=== PATIENT | female | born 1960 | race American Indian/Alaskan Native ===

== ENCOUNTER 2017-06-04 13:17 | Emergency (ER) | payer MEDICARE, OTHER ==
[2017-06-04 13:17] VITALS: BMI 37.2
[2017-06-04 13:32] VITALS: BP 105/69; PULSE 72; RESP 20; TEMP 98.7; O2SAT 96
[2017-06-04] MEDS ORDERED: guaiFENesin 200 mg/10 ml Syrup UD PO STA (16:21)
--- NOTE | 2017-06-04 16:31 | ED PDOC ---
Arrival/HPI - General Historian: Patient <Becky Russell A - Last Filed: 06/04/17 20:19> <StevenBonilla brito - Last Filed: 06/06/17 18:52> - General Chief Complaint: ENT Problem Time Seen by Provider: 06/04/17 13:33 - History of Present Illness Narrative History of Present Illness (Text): 06/04/17 16:23 57yo female with PMHx of hypertension, hypercholestrol, CAD who present with 2weeks history of yellow productive cough. States it started with sore throat. the sore throat resolved and then the cough started. She did not take any medication. Denies fever, nausea, vomiting, chest pain, SOB, sick contact. (Becky Russell A) Past Medical History - Provider Review Nursing Documentation Reviewed: Yes - Infectious Disease Hx of Infectious Diseases: None - Tetanus Immunization Tetanus Immunization: Unknown - Reproductive Menopause: Yes - Cardiac Hx Congestive Heart Failure: Yes Hx [place]: Yes (X5, HEART FAILURE) Hx Hypertension: Yes Hx Internal Defibrillator: Yes (removed after transplant) Other/Comment: HEART TRANSPLANT cardiac arrest - Pulmonary Hx Bronchitis: Yes - Neurological Hx Paralysis: No - HEENT Hx HEENT Disorder: No - Renal Hx Renal Disorder: No - Endocrine/Metabolic Hx Diabetes Mellitus Type 2: Yes - Hematological/Oncological Hx Blood Transfusions: Yes (LAST TRANSFUSION - 2003) Hx Blood Transfusion Reaction: No - Integumentary Hx Dermatological Disorder: No - Musculoskeletal/Rheumatological Hx Arthritis: Yes (R HIP) - Gastrointestinal Hx Gall Bladder Disease: Yes Hx Gastrointestinal Ulcer: Yes - Genitourinary/Gynecological Hx Genitourinary Disorders: Yes (cystitis) - Psychiatric Hx Depression: Yes Hx Emotional Abuse: No Hx Physical Abuse: No Hx Substance Use: No - Surgical History Hx Cardiac Catheterization: Yes Hx Cholecystectomy: Yes Hx Orthopedic Surgery: Yes (RIGHT KNEE, spinal fussion) Hx Tonsillectomy: Yes Other/Comment: heart transplant right knee replacement - Anesthesia Hx Anesthesia Reactions: No - Suicidal Assessment Feels Threatened In Home Enviroment: No <Becky Russell A - Last Filed: 06/04/17 20:19> Family/Social History - Physician Review Nursing Documentation Reviewed: Yes Family/Social History: Unknown Family HX Smoking Status: Former Smoker Hx Alcohol Use: No Hx Substance Use: No Hx Substance Use Treatment: No <Diru,Happiness A - Last Filed: 06/04/17 20:19> Allergies/Home Meds <Diru,Happiness A - Last Filed: 06/04/17 20:19> <StevenDiogenesori - Last Filed: 06/06/17 18:52> Allergies/Adverse Reactions: Allergies acetaminophen Allergy (Verified 10/01/15 18:13) RASH amoxicillin Allergy (Verified 10/01/15 18:13) DIARRHEA amoxicillin trihydrate [From Augmentin] Allergy (Verified 10/01/15 18:13) DIARRHEA apple Allergy (Verified 10/01/15 18:13) RASH cat dander Allergy (Verified 10/01/15 18:13) CONGESTION clavulanic acid Allergy (Verified 10/01/15 18:13) DIARRHEA codeine Allergy (Verified 10/01/15 18:13) RASH dog dander Allergy (Verified 10/01/15 18:13) CONGESTION doxycycline Allergy (Verified 10/01/15 18:13) DIARRHEA grass pollen Allergy (Verified 10/01/15 18:13) CONGESTION hydrocodone Allergy (Verified 10/01/15 18:13) RASH hydrocodone bitartrate [From Vicodin] Allergy (Verified 10/01/15 18:13) RASH ibuprofen Allergy (Verified 10/01/15 18:13) ANAPHYLAXIS iodine Allergy (Verified 10/01/15 18:13) RASH Latex, Natural Rubber Allergy (Verified 10/01/15 18:13) RASH levofloxacin Allergy (Verified 10/01/15 18:13) RASH megestrol Allergy (Verified 10/01/15 18:13) ANAPHYLAXIS metronidazole Allergy (Verified 10/01/15 18:13) DIARRHEA mold Allergy (Verified 10/01/15 18:13) CONGESTION naproxen Allergy (Verified 10/01/15 18:13) ANAPHYLAXIS nitrofurantoin [From Macrobid] Allergy (Verified 10/01/15 18:13) RASH nitrofurantoin macrocrystalline [From Macrobid] Allergy (Verified 10/01/15 18:13 ) RASH oxycodone Allergy (Verified 10/01/15 18:13) RASH oxycodone HCl [From Percocet] Allergy (Verified 10/01/15 18:13) RASH potassium clavulanate [From Augmentin] Allergy (Verified 10/01/15 18:13) DIARRHEA shellfish derived Allergy (Verified 10/01/15 18:13) RASH tomato Allergy (Verified 10/01/15 18:13) RASH vancomycin Allergy (Verified 10/01/15 18:13) RASH hot sauc Allergy (Uncoded 10/01/15 18:13) RASH ketchu Allergy (Uncoded 10/01/15 18:13) RASH mustard Allergy (Uncoded 10/01/15 18:13) RASH Home Medications: Home Meds Medication Instructions Recorded Confirmed Aspirin [Aspirin Chewable] 81 mg PO DAILY 07/09/16 06/04/17 Calcium Carbonate [Calcium] 250 mg PO DAILY 07/09/16 06/04/17 Carvedilol [Coreg] 12.5 mg PO Q12H 07/09/16 06/04/17 Cetirizine HCl [Zyrtec Allergy] 10 mg PO HS 07/09/16 06/04/17 Empagliflozin [Jardiance] 25 mg PO DAILY 07/09/16 06/04/17 Folic Acid 1 mg PO DAILY 07/09/16 06/04/17 Lisinopril [Zestril] 10 mg PO HS 07/09/16 06/04/17 Magnesium Oxide [Mag-Ox] 400 mg PO DAILY 07/09/16 06/04/17 Montelukast [Singulair] 10 mg PO HS 07/09/16 06/04/17 Pravastatin Sodium [Pravachol] 40 mg PO HS 07/09/16 06/04/17 Sertraline [Zoloft] 50 mg PO DAILY 07/09/16 06/04/17 Tacrolimus [Envarsus Xr] 4.5 mg PO Q12H 07/09/16 06/04/17 amLODIPine [Norvasc] 10 mg PO DAILY 07/09/16 06/04/17 Review of Systems - Physician Review All systems were reviewed & negative as marked: Yes - Review of Systems Constitutional: Normal Eyes: Normal ENT: Normal Respiratory: Cough, Sputum. absent: SOB, Wheezing Cardiovascular: Normal Gastrointestinal: Normal Genitourinary Female: Normal Musculoskeletal: Normal Skin: Normal Neurological: Normal Endocrine: Normal Hemo/Lymphatic: Normal Psychiatric: Normal <Diru,Happiness A - Last Filed: 06/04/17 20:19> Physical Exam Vital Signs Reviewed: Yes Temperature: Afebrile Blood Pressure: Normal Pulse: Regular Respiratory Rate: Normal Appearance: Positive for: Well-Appearing, Non-Toxic, Comfortable Pain Distress: None Mental Status: Positive for: Alert and Oriented X 3 - Systems Exam Head: Present: Atraumatic, Normocephalic Pupils: Present: PERRL Extroacular Muscles: Present: EOMI Conjunctiva: Present: Normal Mouth: Present: Moist Mucous Membranes Neck: Present: Normal Range of Motion Respiratory/Chest: Present: Clear to Auscultation, Good Air Exchange. No: Respiratory Distress, Accessory Muscle Use, Wheezes, Decreased Breath Sounds, Rales, Retracting Cardiovascular: Present: Regular Rate and Rhythm, Normal S1, S2. No: Murmurs Abdomen: Present: Normal Bowel Sounds. No: Tenderness, Distention, Peritoneal Signs Back: Present: Normal Inspection Upper Extremity: Present: Normal Inspection. No: Cyanosis, Edema Lower Extremity: Present: Normal Inspection. No: Edema Neurological: Present: GCS=15, CN II-XII Intact, Speech Normal Skin: Present: Warm, Dry, Normal Color. No: Rashes Psychiatric: Present: Alert, Oriented x 3, Normal Insight, Normal Concentration <Diru,Happiness A - Last Filed: 06/04/17 20:19> Vital Signs Temp Pulse Resp BP Pulse Ox 06/04/17 13:22 98.7 F 72 20 105/69 96 Medical Decision Making <Diru,Happiness A - Last Filed: 06/04/17 20:19> <Bonilla Harris - Last Filed: 06/06/17 18:52> ED Course and Treatment: 06/04/17 16:32 Pt was afebrile and hemodynamically stable. CXR NAD. Cardiomegaly and mild pulmonary congestion. PT was treated with Zpack and antitussive for URI. Referred to her PMD . TRT ED for any new or worsening symptoms. 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 <Bonilla Harris - Last Filed: 06/06/17 18:52> Disposition/Present on Arrival - Present on Arrival Any Indicators Present on Arrival: No History of DVT/PE: No History of Uncontrolled Diabetes: No Urinary Catheter: No History of Decub. Ulcer: No History Surgical Site Infection Following: None - Disposition Have Diagnosis and Disposition been Completed?: Yes Disposition Time: 16:35 Patient Plan: Discharge <Becky Russell - Last Filed: 06/04/17 20:19> <Bonilla Harris - Last Filed: 06/06/17 18:52> - Disposition Diagnosis: URI (upper respiratory infection) Disposition: HOME/ ROUTINE Condition: STABLE Discharge Instructions (ExitCare): Upper Respiratory Infection (ED) Additional Instructions: Follow up with your Doctor Return to ED for any new or worsening symptoms Prescriptions: Azithromycin [Zithromax] 250 mg PO DAILY #4 tab Promethazine [Phenergan Syrup] 6.25 mg PO Q6 #100 ml Referrals: Nazia Guadarrama MD [Primary Care Provider] - Follow up with primary Forms: [email or web address] (Italian)
--- NOTE | 2017-06-04 17:24 | RAD ---
HISTORY: cough COMPARISON: Comparison is made to 07/08/2016 TECHNIQUE: Chest PA and lateral FINDINGS: LUNGS: Mild pulmonary vascular congestion is noted. PLEURA: No significant pleural effusion identified. No pneumothorax apparent. CARDIOVASCULAR: Mild cardiomegaly is again seen. The patient status post sternotomy. OSSEOUS STRUCTURES: Internal fixation at the lower cervical spine is again noted. VISUALIZED UPPER ABDOMEN: Normal. OTHER FINDINGS: None. IMPRESSION: Cardiomegaly and mild pulmonary vascular congestion.
== END 2017-06-04 18:03 | disposition home or self-care (01) ==
LOC: ED 13:17
DX: J06.9 Acute upper respiratory infection, unspecified (principal); Z87.891 Personal history of nicotine dependence

== ENCOUNTER 2017-06-09 18:37 | Observation (INO) | payer MEDICARE, OTHER ==
--- NOTE | 2017-06-09 19:14 | ED PDOC ---
Arrival/HPI - General Chief Complaint: Cough, Cold, Congestion Time Seen by Provider: 06/09/17 18:43 Historian: Patient - History of Present Illness Narrative History of Present Illness (Text): 57yoF, w CAD, cardiac arrest history, heart surgery, was seen 2 days ago with Cough and CXR mild vascular congestion, but today now stating chest pain, mild sob, chest pain is generalized without radiation, otherwise no nausea/vomiting/ headache/dizziness/abdomen pain/numbness/tingling/loss of limb function/travel/ prior blood clot/prior blood clots/prior hormonal history. pt took and tolerates asprin. 06/09/17 19:11 Past Medical History - Travel History Have you recently traveled outside [place] w/in the past 3 mons?: No - Infectious Disease Hx of Infectious Diseases: None - Tetanus Immunization Tetanus Immunization: Unknown - Cardiac Hx Congestive Heart Failure: Yes Hx [place]: Yes (X5, HEART FAILURE) Hx Hypertension: Yes Hx Internal Defibrillator: Yes (removed after transplant) Other/Comment: HEART TRANSPLANT cardiac arrest - Pulmonary Hx Bronchitis: Yes - Neurological Hx Paralysis: No - HEENT Hx HEENT Disorder: No - Renal Hx Renal Disorder: No - Endocrine/Metabolic Hx Diabetes Mellitus Type 2: Yes - Hematological/Oncological Hx Blood Transfusions: Yes (LAST TRANSFUSION - 2003) Hx Blood Transfusion Reaction: No - Integumentary Hx Dermatological Disorder: No - Musculoskeletal/Rheumatological Hx Arthritis: Yes (R HIP) - Gastrointestinal Hx Gall Bladder Disease: Yes Hx Gastrointestinal Ulcer: Yes - Genitourinary/Gynecological Hx Genitourinary Disorders: Yes (cystitis) - Psychiatric Hx Depression: Yes Hx Emotional Abuse: No Hx Physical Abuse: No Hx Substance Use: No - Surgical History Hx Cardiac Catheterization: Yes Hx Cholecystectomy: Yes Hx Orthopedic Surgery: Yes (RIGHT KNEE, spinal fussion) Hx Tonsillectomy: Yes Other/Comment: heart transplant right knee replacement - Anesthesia Hx Anesthesia Reactions: No - Suicidal Assessment Feels Threatened In Home Enviroment: No Family/Social History - Physician Review Nursing Documentation Reviewed: Yes Family/Social History: No Known Family HX Smoking Status: Former Smoker Hx Alcohol Use: No Hx Substance Use: No Hx Substance Use Treatment: No Allergies/Home Meds Allergies/Adverse Reactions: Allergies acetaminophen Allergy (Verified 10/01/15 18:13) RASH amoxicillin Allergy (Verified 10/01/15 18:13) DIARRHEA amoxicillin trihydrate [From Augmentin] Allergy (Verified 10/01/15 18:13) DIARRHEA apple Allergy (Verified 10/01/15 18:13) RASH cat dander Allergy (Verified 10/01/15 18:13) CONGESTION clavulanic acid Allergy (Verified 10/01/15 18:13) DIARRHEA codeine Allergy (Verified 10/01/15 18:13) RASH dog dander Allergy (Verified 10/01/15 18:13) CONGESTION doxycycline Allergy (Verified 10/01/15 18:13) DIARRHEA grass pollen Allergy (Verified 10/01/15 18:13) CONGESTION hydrocodone Allergy (Verified 10/01/15 18:13) RASH hydrocodone bitartrate [From Vicodin] Allergy (Verified 10/01/15 18:13) RASH ibuprofen Allergy (Verified 10/01/15 18:13) ANAPHYLAXIS iodine Allergy (Verified 10/01/15 18:13) RASH Latex, Natural Rubber Allergy (Verified 10/01/15 18:13) RASH levofloxacin Allergy (Verified 10/01/15 18:13) RASH megestrol Allergy (Verified 10/01/15 18:13) ANAPHYLAXIS metronidazole Allergy (Verified 10/01/15 18:13) DIARRHEA mold Allergy (Verified 10/01/15 18:13) CONGESTION naproxen Allergy (Verified 10/01/15 18:13) ANAPHYLAXIS nitrofurantoin [From Macrobid] Allergy (Verified 10/01/15 18:13) RASH nitrofurantoin macrocrystalline [From Macrobid] Allergy (Verified 10/01/15 18:13 ) RASH oxycodone Allergy (Verified 10/01/15 18:13) RASH oxycodone HCl [From Percocet] Allergy (Verified 10/01/15 18:13) RASH potassium clavulanate [From Augmentin] Allergy (Verified 10/01/15 18:13) DIARRHEA shellfish derived Allergy (Verified 10/01/15 18:13) RASH tomato Allergy (Verified 10/01/15 18:13) RASH vancomycin Allergy (Verified 10/01/15 18:13) RASH hot sauc Allergy (Uncoded 10/01/15 18:13) RASH ketchu Allergy (Uncoded 10/01/15 18:13) RASH mustard Allergy (Uncoded 10/01/15 18:13) RASH Home Medications: Home Meds Medication Instructions Recorded Confirmed Aspirin [Aspirin Chewable] 81 mg PO DAILY 07/09/16 06/09/17 Calcium Carbonate [Calcium] 250 mg PO DAILY 07/09/16 06/09/17 Carvedilol [Coreg] 12.5 mg PO Q12H 07/09/16 06/09/17 Cetirizine HCl [Zyrtec Allergy] 10 mg PO HS 07/09/16 06/09/17 Empagliflozin [Jardiance] 25 mg PO DAILY 07/09/16 06/09/17 Folic Acid 1 mg PO DAILY 07/09/16 06/09/17 Lisinopril [Zestril] 10 mg PO HS 07/09/16 06/09/17 Magnesium Oxide [Mag-Ox] 400 mg PO DAILY 07/09/16 06/09/17 Montelukast [Singulair] 10 mg PO HS 07/09/16 06/09/17 Pravastatin Sodium [Pravachol] 40 mg PO HS 07/09/16 06/09/17 Sertraline [Zoloft] 50 mg PO DAILY 07/09/16 06/09/17 Tacrolimus [Envarsus Xr] 4.5 mg PO Q12H 07/09/16 06/09/17 amLODIPine [Norvasc] 10 mg PO DAILY 07/09/16 06/09/17 Review of Systems - Review of Systems Constitutional: Normal Eyes: Normal ENT: Normal Respiratory: SOB Cardiovascular: Chest Pain Gastrointestinal: Normal Genitourinary Female: Normal Musculoskeletal: Normal Skin: Normal Neurological: Normal Endocrine: Normal Hemo/Lymphatic: Normal Psychiatric: Normal Physical Exam Vital Signs Reviewed: Yes Vital Signs Temp Pulse Resp BP Pulse Ox 06/09/17 18:53 98.7 F 77 16 134/87 98 Temperature: Afebrile Blood Pressure: Hypertensive Pulse: Regular Respiratory Rate: Normal Appearance: Positive for: Well-Appearing, Non-Toxic, Uncomfortable Pain Distress: Mild Mental Status: Positive for: Alert and Oriented X 3 - Systems Exam Head: Present: Atraumatic, Normocephalic Pupils: Present: PERRL Extroacular Muscles: Present: EOMI Conjunctiva: Present: Normal Ears: Present: Normal Mouth: Present: Moist Mucous Membranes Pharnyx: Present: Normal Nose (External): Present: Atraumatic Nose (Internal): Present: Normal Inspection Neck: Present: Normal Range of Motion Respiratory/Chest: Present: Clear to Auscultation, Good Air Exchange Cardiovascular: Present: Regular Rate and Rhythm Abdomen: No: Tenderness, Distention, Normal Bowel Sounds, Peritoneal Signs, Rebound, Guarding, McBurney's Point Tender, Rovsing's Sign Present, Hernias, Feeding Tubes, Ostomy Tubes, Mass/Organomegaly, Scars, Other Back: Present: Normal Inspection Upper Extremity: Present: Normal Inspection Lower Extremity: Present: Normal Inspection Neurological: Present: GCS=15, CN II-XII Intact, Speech Normal, Motor Func Grossly Intact Skin: Present: Warm, Normal Color Psychiatric: Present: Alert, Oriented x 3, Normal Insight, Normal Concentration , Other (denies suicidal/homicidal/hallucinations) Medical Decision Making ED Course and Treatment: 57yoF, w CAD, cardiac arrest history, heart surgery, was seen 2 days ago with Cough and CXR mild vascular congestion, but today now stating chest pain, mild sob, chest pain is generalized without radiation, otherwise no nausea/vomiting/ headache/dizziness/abdomen pain/numbness/tingling/loss of limb function/travel/ prior blood clot/prior blood clots/prior hormonal history. pt took and tolerates asprin. You were otherwise breathing easily, good strength/sensation, clear lungs, no abdomen tenderness, no fever temp 98.7, stable heart rate 77, stable breathing rate 16, excellent oxygen level 98% room air, elevated blood pressure 134/87 which we recommend repeat in 2-3 days primary care office to determine further treatment, you have blood tests no infection count 7, stable blood level hemoglobin 14/platelets 388, mildly elevated glucose 157, heart blood test less than 0.01, elevated d-dimer [address] Angiography chest considered but pt stated allergy to iodine and VQ ordered, ECG normal sinus rhythm, asprin, intravenous fluids done in the ED with improvement 06/09/17 19:15 06/09/17 20:57 06/09/17 20:59 06/09/17 22:19 d/w Dr. Guadarrama who stated can admit, consult kenia sparks for elevated d- dimer, vq scan pending. - Lab Interpretations Lab Results: 06/09/17 19:26 06/09/17 19:26 Lab Results 06/09/17 21:00: Influenza Typ A,B (EIA) Negative for flu a/b 06/09/17 19:26: Sodium 142, Potassium 4.0, Chloride 106, Carbon Dioxide 24, Anion Gap 16, BUN 18, Creatinine 1.2, Est GFR ( Amer) 56, Est GFR (Non- Af Amer) 46, Random Glucose 157 H, Calcium 9.8, Magnesium 1.9, Total Bilirubin 0.7, AST 24, ALT 29, Alkaline Phosphatase 98, Lactate Dehydrogenase 540, Total Creatine Kinase 61, Troponin I < 0.01, NT-Pro-B Natriuret Pep 371, Total Protein 8.0, Albumin 4.2, Globulin 3.8, Albumin/Globulin Ratio 1.1 06/09/17 19:26: PT 12.3, INR 1.13 H, APTT 32.5 06/09/17 19:26: WBC 7.0, RBC 4.63, Hgb 14.1, Hct 42.4, MCV 91.6, MCH 30.5, MCHC 33.3, RDW 14.3, Plt Count 288, MPV 9.5, Gran % 62.8, Lymph % (Auto) 28.1, Mcdonough % (Auto) 6.4 H, Eos % (Auto) 2.3, Baso % (Auto) 0.4, Gran # 4.38, Lymph # 2.0, Mcdonough # 0.5, Eos # 0.2, Baso # 0.03 06/09/17 19:25: D-Dimer, Quantitative 3184 H - RAD Interpretation Radiology Orders: 06/09/17 21:20 LUNG PERF & VENT SCAN [NM] Stat 06/09/17 22:13 CHEST PORTABLE [RAD] Stat - EKG Interpretation Interpreted by ED Physician: Yes (NSR, flipped t waves v3, v4, v5, v6, generalized flattening) Type: 12 lead EKG - Medication Orders Current Medication Orders: Sodium Chloride (Sodium Chloride 0.9%) 100 mls @ 100 mls/hr IV .Q1H JESENIA Last Admin: 06/09/17 21:27 Dose: 100 mls/hr eMAR Start Stop Document 06/09/17 21:27 AD (Rec: 06/09/17 21:27 [id number]) Intravenous Solution Start Date 06/09/17 Start Time 21:05 Discontinued Medications Aspirin (Aspirin) 325 mg PO STAT STA Stop: 06/09/17 19:09 Last Admin: 06/09/17 19:35 Dose: 325 mg Disposition/Present on Arrival - Present on Arrival Any Indicators Present on Arrival: Yes History of DVT/PE: No History of Uncontrolled Diabetes: No Urinary Catheter: No History of Decub. Ulcer: No History Surgical Site Infection Following: None - Disposition Have Diagnosis and Disposition been Completed?: Yes Diagnosis: Chest pain Disposition: HOSPITALIZED Disposition Time: 22:21 Patient Plan: Admission, Telemetry Condition: IMPROVED Discharge Instructions (ExitCare): Chest Pain (ED) Referrals: Nazia Guadarrama MD [Primary Care Provider] - Follow up with primary Forms: [employer] [place])
[2017-06-09 19:35] LABS: BASO # 0.03 K/mm3 (0.0-2.0); BASO % 0.4 % (0.0-3.0); EOS # 0.2 (0.0-0.7); EOS % 2.3 % (1.5-5.0); GRAN # 4.38 (1.4-6.5); GRAN % 62.8 % (50.0-68.0); HEMATOCRIT 42.4 % (36.0-48.0); LYMPH % 28.1 % (22.0-35.0); MEAN CELL VOLUME 91.6 fl (80.0-105.0); MEAN CORPUSCULAR HEMOGLOBIN 30.5 pg (25.0-35.0); MEAN CORPUSCULAR HGB CONC 33.3 g/dl (31.0-37.0); MEAN PLATELET VOLUME 9.5 fl (7.0-11.0); MONO # 0.5 (0.1-0.6); MONO % 6.4 % (1.0-6.0); RED CELL DISTRIBUTION WIDTH 14.3 % (11.5-14.5)
[2017-06-09 19:44] LABS: ALB/GLOB RATIO 1.1 (1.1-1.8); ALKALINE PHOSPHATASE 98 U/L (38-126); ALT/SGPT 29 U/L (7-56); AST/SGOT 24 U/L (14-36); BILIRUBIN,TOTAL 0.7 mg/dL (0.2-1.3); BLOOD UREA NITROGEN 18 mg/dL (7-21); CALCIUM 9.8 mg/dL (8.4-10.5); CARBON DIOXIDE 24 mmol/L (21-33); CHLORIDE 106 mmol/L (98-107); GFR AFRICAN-AMERICAN 56; GLUCOSE,RANDOM 157 mg/dL (70-110); MAGNESIUM 1.9 mg/dL (1.7-2.2); SODIUM 142 mmol/L (132-148)
[2017-06-09 19:46] LABS: INR 1.13 (0.93-1.08); PARTIAL THROMBOPLASTIN TIME 32.5 Seconds (25.1-36.5)
[2017-06-09 19:55] LABS: TROPONIN I < 0.01 ng/mL
[2017-06-09] MEDS: Sodium Chloride 0.9% 100 ML IV SCH (21:27)
[2017-06-10 01:07] LABS: PH,URINE 7.5 (4.7-8.0); URINE BILIRUBIN NEGATIVE (NEGATIVE); URINE BLOOD NEGATIVE (NEGATIVE); URINE GLUCOSE (UA) >=1000 mg/dL (NEGATIVE); URINE KETONE NEGATIVE (NEGATIVE); URINE LEUKOCYTE ESTERASE SMALL Leu/uL (NEGATIVE); URINE PROTEIN NEGATIVE mg/dL (<30 mg/dL); URINE UROBILINOGEN 0.2 E.U./dL (<1 E.U./dL)
[2017-06-10 01:10] LABS: URINE APPEARANCE SL CLOUDY (CLEAR); URINE COLOR YELLOW (YELLOW)
[2017-06-10 01:23] LABS: URINE RBC 0 - 2 /hpf (0-2)
[2017-06-10 01:24] LABS: URINE BACTERIA FEW (NEG)
[2017-06-10] MEDS: Sodium Chloride 0.9% 100 ML IV SCH (10:02)
[2017-06-10] MEDS ORDERED: TACROLIMUS PO SCH (10:15)
--- NOTE | 2017-06-10 10:17 | CARD ---
APPROVED REPORT EKG Measurement Heart [id number] <Conclusion> Normal sinus rhythm RSR' or QR pattern in V1 suggests right ventricular conduction delay ST & T wave abnormality, consider anterolateral ischemia New T wave inversions V 3 - 6 since ECG 07/08/16
[2017-06-10] MEDS: Magnesium Oxide 400 mg Tab UD PO SCH (11:42)
[2017-06-10] MEDS: Insulin Reg-LOW-Coverage SC SCH ×3 (12:00→22:02)
[2017-06-10] MEDS: EMPAGLIFLOZIN 25 MG PO SCH (14:01)
--- NOTE | 2017-06-10 14:17 | RAD ---
HISTORY: 57yoF, chest pain COMPARISON: Comparison chest dated 06/04/2017. FINDINGS: LUNGS: No active pulmonary disease. PLEURA: No significant pleural effusion identified, no pneumothorax apparent. CARDIOVASCULAR: Sternotomy wires again noted. Heart size upper limits of normal. OSSEOUS STRUCTURES: Re- demonstrated is a the multi segment ACDF plate overlying the lower cervical spine. VISUALIZED UPPER ABDOMEN: Normal. OTHER FINDINGS: None. IMPRESSION: No acute infiltrates.
--- NOTE | 2017-06-10 14:32 | NM ---
COMPARISON: 07/09/2016 ventilation-perfusion scan. June 09, 2017. Single-view chest TECHNIQUE: 33.0 mCi technetium 99-m DTPA aerosol. 4.0 mCI technetium 99-m MAA administered intravenously. FINDINGS: Clinical history: Flu-like symptoms. VENTILATION COMPONENT: Normal. PERFUSION COMPONENT: Heterogeneous distribution of radionuclide. No geographic, segmental, lobar abnormalities apparent on the present examination. IMPRESSION: Low probability ventilation perfusion scan for pulmonary embolism.
[2017-06-10 15:10] VITALS: BMI 35.4
[2017-06-10] MEDS: Sodium Chloride 0.9% 1,000 ML IV SCH (16:22)
[2017-06-10] MEDS: Albuterol-Ipratrop 3 mg / 0.5 (3 ml) UD IH SCH ×2 (16:27→21:58)
[2017-06-10] MEDS ORDERED: guaiFENesin 200 mg/10 ml Syrup UD PO ONE (16:49)
[2017-06-10] MEDS ORDERED: PROGRAF 0.5 MG PO SCH (22:45)
[2017-06-10] MEDS: TACROLIMUS 4 MG PO SCH (23:00)
[2017-06-11] MEDS: Albuterol-Ipratrop 3 mg / 0.5 (3 ml) UD IH SCH ×4 (02:12→19:41)
--- NOTE | 2017-06-11 02:33 | CON ---
PULMONARY CONSULTATION DATE: 06/10/2017 REFERRING PHYSICIAN: Nazia Guadarrama MD REASON FOR CONSULTATION: Chest pain, shortness of breath, history of heart transplant, chronic obstructive lung disease, and sleep apnea syndrome. HISTORY OF PRESENT ILLNESS: This is a 57-year-old female, well known to me from the office and previous admission, has multiple medical problems including cardiomyopathy, history of heart transplant, chronic obstructive lung disease, history of sleep apnea syndrome, has been having URI symptoms for the last few days, could not use CPAP, comes in with chest pain, presently feels better, sitting up in the bed and having dinner. No nausea. No vomiting, diarrhea, leg pain, or leg swelling. PAST MEDICAL HISTORY: Cardiomyopathy, status post heart transplant, also has hypertension, chronic lung disease, diabetes, anemia, history of gastric ulcers, depression, and degenerative joint disease. FAMILY HISTORY: No significant cardiopulmonary disease reported. SOCIAL HISTORY: Nonsmoker and nondrinker. ALLERGIES: ACETAMINOPHEN, AMOXICILLIN, APPLE, CATS, CODEINE, DOXYCYCLINE, HYDROCODONE, IBUPROFEN, LATEX, LEVAQUIN, MEGESTROL, METRONIDAZOLE, NAPROXEN, NITROFURANTOIN, AUGMENTIN, SHELLFISH, TOMATOES, AND VANCOMYCIN. MEDICATIONS: She is on aspirin 81 mg daily, Claritin 10 mg daily, Coreg 12.5 mg twice a day, and DuoNeb q.6 hours. She is on Jardiance 25 mg daily, folic acid 1 mg daily, insulin coverage, Lipitor 10 mg daily, magnesium oxide 400 mg daily, Norvasc 10 mg daily, Os-Kristian 250 mg daily, Singulair 10 mg daily, IV fluid normal saline 100 mL/hour, tacrolimus 4.5 mg q.12 hours, Zestril 10 mg daily, and Zoloft 50 mg daily. REVIEW OF SYSTEMS: No headaches. Has some rhinitis, postnasal drip, cough, and shortness of breath. No more chest pain. No dysuria. No leg pain or leg swelling. PHYSICAL EXAMINATION: GENERAL: Lying in the bed, in no acute distress. VITAL SIGNS: Temperature is 98, heart rate is 70, respiratory rate is 20, blood pressure is 114/71, and pulse ox is 98% on nasal cannula. HEENT: Moist mucous membrane. Crowded airway. NECK: Supple. No JVD. LUNGS: Has a fair airflow with few rhonchi. HEART: S1 and S2. ABDOMEN: Soft and nontender. No organomegaly. EXTREMITIES: No edema. NEUROLOGIC: Awake, alert, and follows simple commands.. LABORATORY DATA: Shows hemoglobin is 14.1, hematocrit is 42.4, WBC is 7.0, and platelets are 288. INR 1.13 and PTT is 33. Sodium 142, potassium 4.0, chloride 106, bicarbonate 24, BUN 18, creatinine 1.2, glucose 157, calcium 9.3, and magnesium 1.9. AST 24, ALT 29, and alkaline phosphatase 98. Troponin less than 0.01. Albumin is 4.2. Urinalysis, unremarkable. Influenza A and B is negative. Chest x-ray done in ER shows no acute infiltrate. V/Q scan is done, which shows low probability of PE. ASSESSMENT AND PLAN: Cardiomyopathy, status post heart transplant, being followed by transplant team at [facility], has obstructive sleep apnea syndrome, chronic lung disease, diabetes, circadian rhythm disorder, degenerative joint disease, and probably having upper respiratory tract infection symptoms. I agree with the present management. We will add Flonase 1 spray to each nostril twice a day, Singulair 10 mg at bedtime, and start CPAP 7 cm with 30% oxygen. Gastric prophylaxis and deep venous thrombosis prophylaxis. Thank you and we will follow with you. Sandra Kim MD
--- NOTE | 2017-06-11 05:29 | HP ---
CHIEF COMPLAINT: Cough and cold congestion. HISTORY OF PRESENT ILLNESS: Ms. Yaz Beatty is a 57-year-old lady with coronary artery disease, history of congestive heart failure, cardiac arrest, cardiac transplant was seen in [facility] Emergency Room 2 days ago with cough and on chest x-ray, mild vascular congestion, but the patient came back to the emergency room saying that has started chest pain, mild shortness of breath, and chest pain is generalized without radiation. Otherwise, no nausea, vomiting, headache, dizziness, or abdominal pain. No hematuria or hematochezia. No fever. No chills or tingling sensation. No history of travel. Chest x-ray shows mild vascular congestion. We admitted the patient, call Cardiology, Pulmonary consult, restarted old medications and start sliding scale. PAST MEDICAL HISTORY: Congestive heart failure, history of cardiac transplant, hypertension, history of bronchitis, diabetes mellitus type 2,anemia status post blood transfusion, arthritis right hip, history of chololithiasis, cystitis, degenerative joint disease, history of spinal fusion, tonsillectomy, and heart transplant. FAMILY HISTORY: Mother has history of congestive heart failure and father unknown. HABITS: Former smoker, now not smoking. No drug. No ethanol. ALLERGIES: THE PATIENT IS ALLERGIC WITH ACETAMINOPHEN, AMOXICILLIN, APPLE, CAT, DANDER, CLAVULANIC ACID, CODEINE, DOG DANDER, DOXYCYCLINE, GRASS POLLEN, HYDROCODONE, IBUPROFEN, LATEX, LEVOFLOXACIN, MAGNESIUM, METRONIDAZOLE, NAPROXEN, NITROFURANTOIN, OXYCODONE, POTASSIUM, SHELLFISH, TOMATO, VANCOMYCIN, HOT SAUCE, KETCHUP, MUSTARD. HOME MEDICATIONS: Aspirin, calcium, Coreg, Zyrtec, Jardiance, folic acid, Zestril, magnesium oxide, Singulair, Plavix, Zoloft, tacrolimus, and Norvasc. SOCIAL HISTORY: Text. REVIEW OF SYSTEMS: The patient is seen and examined on the bedside, still feeling fatigued and tired, having shortness of breath and chest pain with breathing. Otherwise, no diarrhea. No constipation. No joint deformities. No fever. No chills. No hematuria or hematochezia. PHYSICAL EXAMINATION: VITAL SIGNS: Temperature 98.7; pulse 77, respiratory rate 16, blood pressure 134/84; and pulse oximetry 98%. HEENT: Head is normocephalic and atraumatic. Eyes; PERRLA. Extraocular muscles are intact. Conjunctivae clear. Nose patent. Mucous membranes moist. NECK: Supple. No carotid bruit or thyromegaly. CHEST: Bilaterally symmetrical. HEART: S1 and S2 positive. LUNGS: Clear to auscultation. ABDOMEN: Soft. Bowel sounds present. No organomegaly. EXTREMITIES: No edema. No cyanosis. NEUROLOGIC: The patient is awake and alert. Moving all 4 extremities. No focal deficits. LABORATORY DATA: White blood cells 7.1, hemoglobin 14.1, hematocrit 42.2, and platelets 288. Sodium 142, potassium 4.0, BUN 18, creatinine 1.2, and glucose 157. ASSESSMENT AND PLAN: Ms. Yaz Beatty is a 57-year-old lady with hyperglycemia and diabetes mellitus type 2 non-insulin requiring, came with cold-like symptoms. First time, she came 2 days ago, emergency room gave Zithromax and nebulizer treatment. The patient improved, but came back with severe symptoms. Even this time, she has chest pain, shortness of breath, mild vascular marking on the chest with x-rays. V/Q scan is done. The patient has history of congestive heart failure, cardiac transplant, degenerative joint disease, history of heart transplant, history of internal defibrillator was removed after heart transplant, history of bronchitis, anemia status post blood transfusion, right hip arthritis, history of gallbladder disease, gastrointestinal ulcers, cystitis, and right knee and spinal fusion. GI and DVT prophylaxis. Repeat labs. We will follow. aNzia Guadarrama MD
[2017-06-11 06:01] VITALS: O2SAT 95
[2017-06-11] MEDS: Sodium Chloride 0.9% 1,000 ML IV SCH ×2 (06:31→17:42)
--- NOTE | 2017-06-11 07:36 | CON ---
DATE: 06/10/2017 LOCATION: The patient in room 275, bed 1. REASON FOR CONSULTATION: Chest pain, history of cardiac transplant, coronary artery disease, and respiratory tract infection. HISTORY OF PRESENT ILLNESS: A 57-year-old female, who has a history of myocardial infarction in 2003 and also 2004; and she also had cardiac arrest and then after due to these MIs, the patient developed cardiomyopathy, and finally, she had a cardiac transplant in 2006. She followed with Dr. Iverson at [facility] [place]. The patient is known to have diabetes since last one year. She was told in the past that she had high blood pressure. Later on, she was told that she does not have blood pressure. The patient admitted with three weeks of cough and yellow expectoration and 4-day duration of back and chest pain. Back and chest pain is an ache, and it gets worse on moving and also gets worse on deep inspiration and with cough; and she has marked local tenderness on the chest as well as on the back at the area of the pain. She denies any exertional pain. She also states that she remembers when she had a heart attack that was different type of pain, that was a pressure-like pain, but this is a dull type of pain. The patient had stress test last year, and patient had also cardiac catheterization last year, and it showed one of the coronary artery with 30% blockage. She had again catheterization in this year, 02/2017. She was told that one of the arteries had 60% blockage, but no intervention was needed because it was considered mild blockages. The patient denies any history of exertional angina. PAST MEDICAL HISTORY: Significant for WI x2, cardiorespiratory arrest, cardiac transplants, hypertension, hyperlipidemia, and diabetes. Also had a knee replacement in 2011. PERSONAL HISTORY: Stopped smoking after second WI. Denies any alcohol abuse. MEDICATIONS: List of present medication what the patient was taking lisinopril 10 mg daily, folic acid 1 mg daily, magnesium oxide 400 mg daily, Singular 10 mg at bedtime, Pravachol 40 mg daily, Zoloft 50 mg daily, Envarsus XR 4.5 mg p.o. q. 12 hours, and Norvasc 10 mg daily. REVIEW OF SYSTEMS: All the systems are reviewed, positive mentioned in the history, others are negative. FAMILY HISTORY: Mother had CAD. Brother of WI at age of 50. ALLERGIES: THE PATIENT HAS LONG LIST OF ALLERGIES INCLUDING ACETAMINOPHEN, AMOXYCILLIN, AUGMENTIN, APPLE, CAT DANDER, CLAVULANIC ACID, CODEINE, DOG DANDER, DOXYCYCLINE, GRASS, POLLEN, HYDROCODONE, VICODIN, IBUPROFEN, IODINE, LATEX, LEVAQUIN, MEGESTROL, MOLD, METRONIDAZOLE, NAPROSYN, MACROBID, NITROFURANTOIN, OXYCODONE, POTASSIUM, SHELLFISH, POTASSIUM CLAVULANATE ACID, TOMATO, VANCOMYCIN, KETCHUP, MUSTARD. PHYSICAL EXAMINATION VITAL SIGNS: Blood pressure is 114/71, respiratory rate 20, pulse 70, temperature 97.7. HEENT: Head is normocephalic. Eyes; pupils are normal. Conjunctivae normal. Nose and throat, normal. NECK: JVP low. Carotids are equal. THORAX: The patient had tenderness on the area of the chest pain. Also, tenderness on the back area with the pain in back. LUNGS: Clear. CARDIOVASCULAR: S1 and S2. ABDOMEN: Soft and nontender. No organomegaly. EXTREMITIES: No clubbing. No cyanosis. LABORATORY DATA: WBC 7.0. Hemoglobin 14.1, hematocrit 42.4, platelets 288. Sodium 142, potassium 4.0, BUN 18, creatinine 1.2, glucose 157, calcium 9.8, AST and ALT normal. Troponin less than 0.01. NT-proB natriuretic peptide 371. Albumin and protein normal. Prothrombin time 12.3. INR 1.13. Chest x-ray is clear. Lung scan clear and low probability of pulmonary embolism. EKG showed regular sinus rhythm. T inversion in lead is seen but there is no change from EKG on 07/08/2016. DIAGNOSES: 1. Chest pain. 2. Musculoskeletal pain. 3. Respiratory tract infection. 4. Diabetes. 5. Hypertension. 6. Hyperlipidemia. 7. Coronary artery disease, status post myocardial infarction and cardiorespiratory arrest, myocardial infarction x2, developed ischemic cardiomyopathy, status post cardiac transplant in 2006. PLAN: The patient had a recent cath 02/2017 which showed one vessel 60% narrowing, as per the patient. The patient followed with Dr. Iverson at [employer] [place]. Since the patient's chest pain is musculoskeletal and she had recent cath, so there is no cardiac workup indicated at this point. So, we will continue aspirin 81 mg daily, Coreg 12.5 mg b.i.d., folic acid 1 mg daily, Lipitor 10 mg daily, magnesium oxide 400 mg daily, Norvasc 30 mg daily, Singulair 10 mg daily, Envarsus XR 4.5 mg q. 12 hour, lisinopril 10 mg p.o. daily, and Zoloft 50 mg p.o. daily. We will follow. Sandra Noble MD
[2017-06-11] MEDS: Insulin Reg-LOW-Coverage SC SCH ×3 (08:20→16:30)
[2017-06-11] MEDS ORDERED: Home Med 1 UNIT PO SCH ×2 (10:00→12:34)
[2017-06-11] MEDS: Magnesium Oxide 400 mg Tab UD PO SCH (11:00)
[2017-06-11] MEDS: EMPAGLIFLOZIN 25 MG PO SCH (11:02)
[2017-06-11] MEDS: TACROLIMUS 4 MG PO SCH (11:20)
[2017-06-11 11:29] VITALS: PULSE 66
--- NOTE | 2017-06-11 12:54 | PN ---
DATE: 06/10/2017 The patient is a 57-year-old female. REASON FOR CONSULTATION/FOLLOWUP: Chest pain, history of cardiac transplant, history of recent cardiac catheterization, nonobstructive coronary artery disease at [facility] ([facility]). The patient complained of some chest pain, back pain which is a tenderness. OBJECTIVE: GENERAL: Not in apparent distress, lying flat in the bed, not in pain. VITAL SIGNS: Temperature afebrile, heart rate blood pressure 109/69. HEENT: PERRLA. Extraocular muscles intact. NECK: Supple. No carotid bruits or thyromegaly. CHEST: Clear to auscultation. HEART: S1 and S2 regular. ABDOMEN: Soft. EXTREMITIES: Clubbing and cyanosis negative. LABORATORY DATA: Blood workup as follows: WBC 7, hemoglobin 14.1, hematocrit 42.4, platelet count 288. Chemistry shows sodium 141, potassium 4, chloride 106, bicarbonate 24, anion gap 16, BUN 18, creatinine 1.2. Troponin is negative. IMPRESSION: Chest pain, atypical, so far no evidence of acute myocardial infarction. History of nonobstructive coronary artery disease status post cardiac catheterization in February by Dr. Chan Iverson at [facility], negative. History of myocardial infarction in the past, history of cardiac transplant, musculoskeletal chest pain, respiratory tract infection, diabetes, hypertension, hyperlipidemia. RECOMMENDATION: Continue medical treatment, discontinue telemetry. Upon discharge, the patient to be followed up with Dr. Chan Iverson. No further cardiac workup is planned at this time. Thank you Dr. Guadarrama for providing me the opportunity in taking care of the patient. Sandra Wynn MD
[2017-06-11] MEDS ORDERED: PROGRAF 5 MG PO SCH (14:15)
[2017-06-11 17:45] VITALS: BP 105/69; RESP 20; TEMP 98.4
--- NOTE | 2017-06-11 18:55 | PN ---
PULMONARY PROGRESS NOTE DATE: 06/11/2017 REFERRING PHYSICIAN: Nazia Guadarrama MD SUBJECTIVE: The patient is lying in the bed, head at 45 degrees. Night was unremarkable. Feels better. Could not use CPAP last night, not much cough, and short of breath with exertion. No nausea. No vomiting, diarrhea, leg pain or leg swelling. PHYSICAL EXAMINATION: GENERAL: In no acute distress. VITAL SIGNS: Temperature is 98, heart rate is 66, respiratory rate is 20, blood pressure 112/60, and pulse ox 97% on room air. HEENT: Moist mucous membranes. Crowded airway. Short, thick neck. LUNGS: Has a fair airflow with few rhonchi. HEART: S1 and S2. ABDOMEN: Soft and nontender. No organomegaly. EXTREMITIES: There is no edema. NEUROLOGIC: Awake, alert, and follow simple command. MEDICATIONS: The patient is on aspirin 81 mg daily, Benadryl 25 mg at bedtime, Claritin 10 mg daily, Coreg 12.5 mg twice a day, trazodone 100 mg at bedtime, DuoNeb q.6 hours, folic acid 1 mg daily, Lipitor 10 mg daily, magnesium oxide 400 mg daily, Norvasc 10 mg daily, and Os-Kristian 250 mg daily. She is getting Prograf mg at bedtime, Singulair 10 mg daily, IV fluid, normal saline 100 mL per hour, Zestril 10 mg at bedtime, and Zoloft 50 mg daily. LABORATORY DATA: Shows blood sugar this morning is 90. IMPRESSION AND PLAN: Cardiomyopathy, status post heart transplant, obstructive sleep apnea syndrome, obstructive lung disease, diabetes, circadian rhythm disorder, degenerative joint disease, and upper respiratory tract infection type symptom. Pulmonary point of view, doing okay. Continue bronchodilator. Keep head at 45 degree. Encourage continuous positive airway pressure use. Continue immunosuppressive medication. Gastric prophylaxis, deep venous thrombosis prophylaxis, and out of bed to chair. Thank you and we will follow with you. Sandra Kim MD
--- NOTE | 2017-06-11 22:22 | CP.PCM.PN ---
Subjective - Date & Time of Evaluation Date of Evaluation: 06/11/17 Time of Evaluation: 09:50 - Subjective Subjective: pt wants to sign AMA.PT HAS HX of cad heart transplant and recent cardiac cath with non obstructive cad. pt states she just wants to go home no cp ,no sob. Objective - Vital Signs/Intake and Output Vital Signs (last 24 hours): Temp Pulse Resp BP Pulse Ox 98.4 F 66 20 105/69 95 06/11/17 17:44 06/11/17 17:44 06/11/17 17:44 06/11/17 17:44 06/11/17 05:59 - Medications Medications: Current Medications Albuterol/Ipratropium (Duoneb 3 Mg/0.5 Mg (3 Ml) Ud) 3 ml IH [id number] [facility] Last Admin: 06/11/17 19:41 Dose: 3 ml Amlodipine Besylate (Norvasc) 10 mg PO DAILY [facility] Last Admin: 06/11/17 11:17 Dose: 10 mg Aspirin (Aspirin Chewable) 81 mg PO DAILY [facility] Last Admin: 06/11/17 11:00 Dose: 81 mg Atorvastatin Calcium (Lipitor) 10 mg PO HS [facility] Last Admin: 06/10/17 22:02 Dose: 10 mg Calcium Carbonate (Oscal) 250 mg PO DAILY [facility] Last Admin: 06/11/17 11:18 Dose: 250 mg Carvedilol (Coreg) 12.5 mg PO Q12H [facility] Last Admin: 06/11/17 11:15 Dose: 12.5 mg Diphenhydramine HCl (Benadryl) 25 mg PO HS [facility] Last Admin: 06/10/17 23:00 Dose: 25 mg Folic Acid (Folic Acid) 1 mg PO DAILY [facility] Last Admin: 06/11/17 11:00 Dose: 1 mg Home Med (Home Med) 1 unit PO DAILY [facility] Last Admin: 06/11/17 15:10 Dose: 1 unit Sodium Chloride (Sodium Chloride 0.9%) 1,000 mls @ 100 mls/hr IV .Q10H [facility] Last Admin: 06/11/17 17:42 Dose: 100 mls/hr Insulin Human Regular (Humulin R Low) 0 units SC ACHS [facility] PRN Reason: Protocol Last Admin: 06/11/17 16:30 Dose: Not Given Lisinopril (Zestril) 10 mg PO HS [facility] Last Admin: 06/10/17 22:02 Dose: 10 mg Loratadine (Claritin) 10 mg PO HS [facility] Magnesium Oxide (Mag-Ox) 400 mg PO DAILY [facility] Last Admin: 06/11/17 11:00 Dose: 400 mg Montelukast Sodium (Singulair) 10 mg PO [facility] Last Admin: 06/11/17 02:26 Dose: Not Given Non-Formulary Medication (Empagliflozin [Jardiance]) 25 mg PO DAILY [facility] Last Admin: 06/11/17 11:02 Dose: Not Given Sertraline HCl (Zoloft) 50 mg PO DAILY [facility] Last Admin: 06/11/17 11:00 Dose: 50 mg Tacrolimus (Prograf Cap) 0.5 mg PO HS [facility] Tacrolimus (Prograf Cap) 4 mg PO HS [facility] Trazodone HCl (Desyrel) 100 mg PO [facility] Last Admin: 06/10/17 23:00 Dose: 100 mg - Labs Labs: PT 12.3 SECONDS (9.4-12.5) 06/09/17 19:26 INR 1.13 (0.93-1.08) H 06/09/17 19:26 APTT 32.5 Seconds (25.1-36.5) 06/09/17 19:26 - Constitutional Appears: No Acute Distress - Head Exam Head Exam: NORMOCEPHALIC - Eye Exam Eye Exam: Normal appearance Pupil Exam: PERRL - ENT Exam ENT Exam: Mucous Membranes Moist - Neck Exam Neck Exam: Full ROM, Normal Inspection - Respiratory Exam Respiratory Exam: NORMAL BREATHING PATTERN - Cardiovascular Exam Cardiovascular Exam: RRR, +S1, +S2 - GI/Abdominal Exam GI & Abdominal Exam: Normal Bowel Sounds - Rectal Exam Rectal Exam: Deferred - Extremities Exam Extremities Exam: Full ROM - Neurological Exam Neurological Exam: Alert, Awake, Oriented x3 - Psychiatric Exam Psychiatric exam: Normal Affect - Skin Skin Exam: Normal Color Assessment and Plan - Assessment and Plan (Free Text) Assessment: AMA.HX OF CAD ,HEART TRANSPLANT . Plan: risk of endoscopy technican sob heart attach explained to pt. pt discussed with dr doran.
--- NOTE | 2017-06-12 00:54 | PN ---
DATE: SUBJECTIVE: The patient is a 57-year-old female. The patient is seen and examined on the bedside, looking comfortable. No nausea, vomiting or diarrhea. No hematuria or hematochezia. No swelling of the legs. No chest pain or palpitation. No headache or dizziness. Feeling better. PHYSICAL EXAMINATION VITAL SIGNS: Temperature 98, heart rate 66, respiratory rate 20, blood pressure 112/60, pulse oximetry 97% on room. HEENT: Head is normocephalic and atraumatic. Eyes; PERRLA. Extraocular muscles are intact. Conjunctivae clear. Nose patent. Mucous membranes moist. NECK: Supple. No carotid bruit. No JVD or thyromegaly. CHEST: Bilaterally symmetrical. HEART: S1 and S2 positive. LUNGS: Clear to auscultation. ABDOMEN: Soft. Bowel sounds present. No organomegaly. EXTREMITIES: No edema. No cyanosis. NEUROLOGIC: The patient is awake and alert. Moving all four extremities. No focal deficits. MEDICATIONS: Aspirin, Dilaudid, Claritin, Coreg, trazodone, DuoNeb, folic acid, Lipitor, magnesium, Norvasc, Prograf, Singulare, NS, Zestril, and Zoloft. LABORATORY DATA: Blood sugar 90. We do not have recent labs today, I reviewed old labs. ASSESSMENT AND PLAN: Ms. Yaz Beatty is a 57-year-old lady with multiple medical problems, cardiomyopathy, status post heart transplant, degenerative joint disease, diabetes mellitus, sleep apnea syndrome, chronic obstructive lung disease, circadian rhythm disorders, degenerative joint disease, upper respiratory tract infection and came to the Emergency Room, failed outpatient treatment, admitted, getting better. Continue bronchodilator. Keep head elevated by 45 degree. Encourage continuous positive airway pressure use. Continue immunosuppressive medications. Gastric and DVT prophylaxis. Discussion done with the patient. Reviewed with Dr. Kim's note. We will follow up. Nazia Guadarrama MD MTDD
== END 2017-06-11 22:19 | disposition left against medical advice (07) ==
LOC: ED 18:37 → ERH 23:22 → 2RSO 06-10 13:33
PROVIDERS: ADMIT Internal Medicine; ATTEND Internal Medicine
DX: R07.89 Other chest pain (principal); Z94.1 Heart transplant status; I50.9 Heart failure, unspecified; I11.0 Hypertensive heart disease with heart failure; E11.65 Type 2 diabetes mellitus with hyperglycemia; I25.5 Ischemic cardiomyopathy; I25.10 Atherosclerotic heart disease of native coronary artery without angina pectoris; D64.9 Anemia, unspecified; G47.33 Obstructive sleep apnea (adult) (pediatric); E78.5 Hyperlipidemia, unspecified; I25.2 Old myocardial infarction; J44.9 Chronic obstructive pulmonary disease, unspecified; J06.9 Acute upper respiratory infection, unspecified; M16.11 Unilateral primary osteoarthritis, right hip; Z86.74 Personal history of sudden cardiac arrest; Z87.891 Personal history of nicotine dependence; Z98.1 Arthrodesis status; Z82.49 Family history of ischemic heart disease and other diseases of the circulatory system; Z96.659 Presence of unspecified artificial knee joint

== ENCOUNTER 2018-07-08 13:09 | Outpatient (CLI) | payer MEDICARE, OTHER | END 2018-07-08 13:10 | disposition home or self-care (01) | LOC: RAD 13:09 ==

== ENCOUNTER 2018-07-18 11:40 | Outpatient (CLI) | payer MEDICARE, OTHER | END 2018-07-18 11:41 | disposition home or self-care (01) | LOC: LAB 11:40 | DX: E11.65 Type 2 diabetes mellitus with hyperglycemia (principal); Z94.1 Heart transplant status; Z79.899 Other long term (current) drug therapy; Z48.21 Encounter for aftercare following heart transplant ==

== ENCOUNTER 2018-07-25 09:42 | Day surgery (SDC) | payer MEDICARE, OTHER ==
[2018-07-25] MEDS ORDERED: Propofol 10 mg/ml Inj (20 ML) ONE ×3 (11:24→12:06)
[2018-07-25] MEDS ORDERED: Sodium Chloride 0.9% 1,000 ML IV SCH (11:30)
[2018-07-25 12:33] VITALS: O2SAT 99
[2018-07-25 13:58] VITALS: BP 112/64; PULSE 64; RESP 15; TEMP 98.4
== END 2018-07-25 14:17 | disposition home or self-care (01) ==
LOC: ENDO 09:42
PROVIDERS: ATTEND Internal Medicine Gastroenterology
DX: D12.2 Benign neoplasm of ascending colon (principal); D12.0 Benign neoplasm of cecum; D12.3 Benign neoplasm of transverse colon; K31.7 Polyp of stomach and duodenum; K29.30 Chronic superficial gastritis without bleeding; K21.0 Gastro-esophageal reflux disease with esophagitis; K57.30 Diverticulosis of large intestine without perforation or abscess without bleeding; K64.8 Other hemorrhoids
CPT/HCPCS: 43239; 45380; 45385; 82948; 88305; 88342; J0295; J2001; J2704; J7030; J7040

== ENCOUNTER 2018-08-19 08:07 | Outpatient (CLI) | payer MEDICARE, OTHER | END 2018-08-19 08:08 | disposition home or self-care (01) | LOC: LAB 08:07 ==

== ENCOUNTER 2018-09-05 12:31 | Outpatient (CLI) | payer MEDICARE, OTHER | END 2018-09-05 12:32 | disposition home or self-care (01) | LOC: LAB 12:31 ==

== ENCOUNTER 2018-09-07 22:55 | Observation (INO) | payer MEDICARE, OTHER ==
[2018-09-08 00:29] LABS: BASO # 0.02 K/mm3 (0.0-2.0); BASO % 0.2 % (0.0-3.0); EOS # 0.3 (0.0-0.7); EOS % 3.4 % (1.5-5.0); HEMOGLOBIN 13.3 g/dL (12.0-16.0); LYMPH # 2.8 (1.2-3.4); LYMPH % 31.1 % (22.0-35.0); MEAN CELL VOLUME 90.7 fl (80.0-105.0); MEAN CORPUSCULAR HGB CONC 33.1 g/dl (31.0-37.0); MEAN PLATELET VOLUME 9.6 fl (7.0-11.0); MONO # 0.6 (0.1-0.6); MONO % 6.8 % (1.0-6.0); RBC 4.43 10^6/uL (3.5-6.1); RED CELL DISTRIBUTION WIDTH 13.6 % (11.5-14.5); WHITE BLOOD COUNT 8.9 10^3/uL (4.5-11.0)
[2018-09-08 00:30] LABS: URINE BILIRUBIN NEGATIVE (NEGATIVE); URINE BLOOD NEGATIVE (NEGATIVE); URINE GLUCOSE (UA) NEGATIVE (NEGATIVE); URINE LEUKOCYTE ESTERASE SMALL Leu/uL (NEGATIVE); URINE PROTEIN TRACE mg/dL (<30 mg/dL); URINE UROBILINOGEN 0.2 E.U./dL (<1 E.U./dL)
[2018-09-08 00:32] LABS: URINE APPEARANCE CLEAR (CLEAR); URINE COLOR DARK YELLOW (YELLOW)
[2018-09-08 00:33] LABS: HCG,QUALITATIVE URINE NEGATIVE (NEGATIVE)
[2018-09-08 00:36] LABS: INR 1.07; PROTHROMBIN TIME 11.9 SECONDS (9.4-12.5)
[2018-09-08 00:37] LABS: ALB/GLOB RATIO 1.1 (1.1-1.8); ALT/SGPT 10 U/L (7-56); AST/SGOT 24 U/L (14-36); BLOOD UREA NITROGEN 21 mg/dL (7-21); CALCIUM 9.7 mg/dL (8.4-10.5); GFR NON-AFRICAN AMERICAN 33; LIPASE 104 U/L (23-300); PARTIAL THROMBOPLASTIN TIME 35.3 Seconds (26.9-38.3)
[2018-09-08 00:47] LABS: URINE BACTERIA FEW /hpf; URINE EPITHELIAL CELLS MANY /hpf (0-5); URINE HYALINE CAST 0 - 2 /hpf; URINE RBC 0 - 2 /hpf (0-2)
[2018-09-08 00:48] LABS: TROPONIN I < 0.01 ng/mL
--- NOTE | 2018-09-08 01:42 | ED PDOC ---
Arrival/HPI - General Historian: Patient - History of Present Illness Narrative History of Present Illness (Text): 09/08/18 01:36 58 y/o female with PMH of CAD, heart transplant (2006), CHF, presents to the ED c/o abdominal pain x 1.5 months. Pain began after a colonoscopy on 07/25/18. Colonoscopy was significant for polyps, otherwise normal, per patient. Abdominal pain is described as burning, generalized, worse epigastric. States that every time she eats she feels bloated, causing decreased PO intake recently. Associated non-bloody diarrhea every other day and chest pain that she describes as a vague "discomfort", worse with BM. Vomited once 4 days ago, nonbloody, nonbilious. Pt spoke with her GI doctor this morning who recommend she come to the ED. Pt comes with script from Dr. Rasheed stating he would like a CT without PO or IV contrast. Denies back pain, SOB, fever, chills, urinary symptoms, PMD: Ahktar Cardio: Kishor ([facility]) GI: Kathya <Mariana Baez - Last Filed: 09/08/18 01:56> <Jacob Sanz - Last Filed: 09/08/18 04:33> - General Chief Complaint: GI Problem Time Seen by Provider: 09/07/18 23:02 Past Medical History - Provider Review Nursing Documentation Reviewed: Yes - Infectious Disease Hx of Infectious Diseases: None - Tetanus Immunization Tetanus Immunization: Unknown - Cardiac Hx Pacemaker: No - Pulmonary Hx Respiratory Disorders: Yes Hx Bronchitis: Yes Hx Sleep Apnea: Yes - Neurological Hx Paralysis: No - HEENT Hx HEENT Disorder: No - Renal Hx Renal Disorder: No - Endocrine/Metabolic Hx Diabetes Mellitus Type 2: Yes - Hematological/Oncological Hx Blood Transfusions: Yes (LAST TRANSFUSION - 2003) Hx Blood Transfusion Reaction: No - Integumentary Hx Dermatological Disorder: No - Musculoskeletal/Rheumatological Hx Musculoskeletal Disorders: Yes - Gastrointestinal Hx Gall Bladder Disease: Yes Hx Gastrointestinal Ulcer: Yes - Genitourinary/Gynecological Hx Genitourinary Disorders: Yes (cystitis) - Psychiatric Hx Emotional Abuse: No Hx Physical Abuse: No Hx Substance Use: No - Surgical History Hx Joint Replacement: Yes (right hip) Hx Open Heart Surgery: Yes (heart transplant) - Anesthesia Hx Anesthesia: Yes Hx Anesthesia Reactions: No Hx Malignant Hyperthermia: No - Suicidal Assessment Feels Threatened In Home Enviroment: No <Mariana Baez - Last Filed: 09/08/18 01:56> Family/Social History - Physician Review Nursing Documentation Reviewed: Yes Family/Social History: No Known Family HX Smoking Status: Former Smoker Hx Alcohol Use: Yes (periodically) Hx Substance Use: No Hx Substance Use Treatment: No <Mariana Baez - Last Filed: 09/08/18 01:56> Allergies/Home Meds <Mariana Baez - Last Filed: 09/08/18 01:56> <Jacob Sanz - Last Filed: 09/08/18 04:33> Allergies/Adverse Reactions: Allergies acetaminophen Allergy (Verified 09/08/18 04:07) RASH amoxicillin Allergy (Verified 09/08/18 04:07) DIARRHEA amoxicillin trihydrate [From Augmentin] Allergy (Verified 09/08/18 04:07) DIARRHEA apple Allergy (Verified 09/08/18 04:07) RASH cat dander Allergy (Verified 09/08/18 04:07) CONGESTION clavulanic acid Allergy (Verified 09/08/18 04:07) DIARRHEA codeine Allergy (Verified 09/08/18 04:07) RASH dog dander Allergy (Verified 09/08/18 04:07) CONGESTION doxycycline Allergy (Verified 09/08/18 04:07) DIARRHEA grass pollen Allergy (Verified 09/08/18 04:07) CONGESTION hydrocodone Allergy (Verified 09/08/18 04:07) RASH hydrocodone bitartrate [From Vicodin] Allergy (Verified 09/08/18 04:07) RASH ibuprofen Allergy (Verified 09/08/18 04:07) ANAPHYLAXIS iodine Allergy (Verified 09/08/18 04:07) RASH Latex, Natural Rubber Allergy (Verified 09/08/18 04:07) RASH levofloxacin Allergy (Verified 09/08/18 04:07) RASH megestrol Allergy (Verified 09/08/18 04:07) ANAPHYLAXIS metronidazole Allergy (Verified 09/08/18 04:07) DIARRHEA mold Allergy (Verified 09/08/18 04:07) CONGESTION naproxen Allergy (Verified 09/08/18 04:07) ANAPHYLAXIS nitrofurantoin macrocrystalline [From Macrobid] Allergy (Verified 09/08/18 04:07) RASH oxycodone HCl [From Percocet] Allergy (Verified 09/08/18 04:07) RASH potassium clavulanate [From Augmentin] Allergy (Verified 09/08/18 04:07) DIARRHEA shellfish derived Allergy (Verified 09/08/18 04:07) RASH tomato Allergy (Verified 09/08/18 04:07) RASH vancomycin Allergy (Verified 09/08/18 04:07) RASH hot sauc Allergy (Uncoded 09/08/18 04:07) RASH ketchu Allergy (Uncoded 09/08/18 04:07) RASH mustard Allergy (Uncoded 09/08/18 04:07) RASH Home Medications: Home Meds Medication Instructions Recorded Confirmed Aspirin [Aspirin Chewable] 81 mg PO DAILY 07/09/16 07/25/18 Calcium Carbonate [Calcium] 250 mg PO DAILY 07/09/16 07/25/18 Carvedilol [Coreg] 12.5 mg PO BID 07/09/16 07/25/18 Lisinopril [Zestril] 10 mg PO HS 07/09/16 07/25/18 Montelukast [Singulair] 10 mg PO HS 07/09/16 07/25/18 Pravastatin Sodium [Pravachol] 40 mg PO HS 07/09/16 07/25/18 amLODIPine [Norvasc] 10 mg PO DAILY 07/09/16 07/25/18 DULoxetine [Cymbalta] 20 mg PO DAILY 07/21/18 07/25/18 Linagliptin [Tradjenta] 5 mg PO QD7 07/21/18 07/21/18 Multivit-Minerals/Folic Acid 1 tab PO DAILY 07/21/18 07/25/18 [Adult One Daily Multivit Tab] Oxycodone HCl [Oxycodone HCl ER] 15 mg PO BID 07/21/18 07/25/18 Tacrolimus [Prograf] 4.5 mg PO HS 07/21/18 07/25/18 Tacrolimus [Prograf] 5 mg PO DAILY 07/21/18 07/25/18 Trazodone HCl 150 mg PO HS 07/21/18 07/25/18 Review of Systems - Review of Systems Constitutional: Normal. absent: Fevers Eyes: Normal. absent: Vision Changes ENT: Normal. absent: Sore Throat, Sinus Congestion Respiratory: Normal. absent: SOB, Cough Cardiovascular: Chest Pain. absent: Palpitations, Calf Pain, Syncope Gastrointestinal: Abdominal Pain, Stool Changes, Diarrhea, Nausea, Vomiting, Appetite Changes Genitourinary Female: Normal. absent: Dysuria, Frequency, Vaginal Bleeding, Vaginal Discharge Musculoskeletal: Normal. absent: Back Pain, Neck Pain Skin: Normal. absent: Rash Neurological: Normal. absent: Headache, Dizziness Endocrine: Normal Hemo/Lymphatic: Normal Psychiatric: Normal <Mariana Baez - Last Filed: 09/08/18 01:56> Physical Exam Vital Signs Reviewed: Yes Vital Signs Temp Pulse Resp BP Pulse Ox 09/08/18 01:17 95 H 16 106/60 97 09/07/18 22:55 98.4 F 89 16 103/58 L 96 Temperature: Afebrile Blood Pressure: Normal Pulse: Regular Respiratory Rate: Normal Appearance: Positive for: Well-Appearing, Non-Toxic, Comfortable Pain Distress: None Mental Status: Positive for: Alert and Oriented X 3 - Systems Exam Head: Present: Atraumatic, Normocephalic Pupils: Present: PERRL Extroacular Muscles: Present: EOMI Conjunctiva: Present: Normal Mouth: Present: Moist Mucous Membranes Neck: Present: Normal Range of Motion. No: Meningeal Signs Respiratory/Chest: Present: Clear to Auscultation, Good Air Exchange. No: Respiratory Distress, Accessory Muscle Use, Tender to Palpation Cardiovascular: Present: Regular Rate and Rhythm, Normal S1, S2 Abdomen: Present: Tenderness (epigastric), Normal Bowel Sounds. No: Distention, Peritoneal Signs, Rebound, Guarding Back: Present: Normal Inspection. No: CVA Tenderness, Paraspinal Tenderness Upper Extremity: Present: Normal Inspection, Normal ROM, NORMAL PULSES, Neurovascularly Intact, Capillary Refill < 2s. No: Cyanosis, Edema, Temperature Abnormalties Lower Extremity: Present: Normal Inspection, Edema (bilateral lower extrem ities), NORMAL PULSES, Normal ROM, Neurovascularly Intact, Capillary Refill < 2 s. No: CALF TENDERNESS, Temperature Abnormalties Neurological: Present: GCS=15, CN II-XII Intact, Speech Normal, Motor Func Grossly Intact, Normal Sensory Function, Gait Normal Skin: Present: Warm, Dry, Normal Color. No: Rashes Psychiatric: Present: Alert, Oriented x 3, Normal Insight, Normal Concentration, Normal Affect, Normal Mood <Mariana Baez - Last Filed: 09/08/18 01:56> Vital Signs Temp Pulse Resp BP Pulse Ox 09/08/18 01:17 95 H 16 106/60 97 09/07/18 22:55 98.4 F 89 16 103/58 L 96 <Jacob Sanz - Last Filed: 09/08/18 04:33> Medical Decision Making ED Course and Treatment: Initial Plan: * CBC, CMP * Lipase * Coags * Troponin * CXR * EKG * CT Abd/Pelvis without contrast * Pepcid 01:55 Bloodwork reviewed, unremarkable. EKG shows NSR at [address]/T wave changes. No STEMI CXR shows no acute changes 02:00 Patient care endorsed to ED attending Dr. Sanz pending CT read, reassessment and disposition. Pt resting comfortably in stretcher with stable vital signs at this time. - Lab Interpretations Lab Results: PT 11.9 SECONDS (9.4-12.5) 09/08/18 00:15 INR 1.07 09/08/18 00:15 APTT 35.3 Seconds (26.9-38.3) 09/08/18 00:15 Troponin I < 0.01 ng/mL 09/08/18 00:15 Total Bilirubin 1.0 mg/dL (0.2-1.3) 09/08/18 00:15 AST 24 U/L (14-36) 09/08/18 00:15 ALT 10 U/L (7-56) 09/08/18 00:15 Alkaline Phosphatase 76 U/L (38-126) 09/08/18 00:15 Total Protein 7.5 g/dL (5.8-8.3) 09/08/18 00:15 Albumin 4.0 g/dL (3.0-4.8) 09/08/18 00:15 Globulin 3.6 gm/dL 09/08/18 00:15 Albumin/Globulin Ratio 1.1 (1.1-1.8) 09/08/18 00:15 Lipase 104 U/L (23-300) 09/08/18 00:15 Urine Color Dark yellow (YELLOW) 09/08/18 00:18 Urine Appearance Clear (CLEAR) 09/08/18 00:18 Urine pH 6.0 (4.7-8.0) 09/08/18 00:18 Ur Specific Stevenson >= 1.030 (1.005-1.035) 09/08/18 00:18 Urine Protein Trace mg/dL (<30 mg/dL) H 09/08/18 00:18 Urine Glucose (UA) Negative mg/dL (NEGATIVE) 09/08/18 00:18 Urine Ketones Trace mg/dL (NEGATIVE) H 09/08/18 00:18 Urine Blood Negative (NEGATIVE) 09/08/18 00:18 Urine Nitrate Negative (NEGATIVE) 09/08/18 00:18 Urine Bilirubin Negative (NEGATIVE) 09/08/18 00:18 Urine Urobilinogen 0.2 E.U./dL (<1 E.U./dL) 09/08/18 00:18 Ur Leukocyte Esterase Small Jordan/uL (NEGATIVE) H 09/08/18 00:18 Urine RBC 0 - 2 /hpf (0-2) 09/08/18 00:18 Urine WBC 2 - 5 /hpf (0-6) 09/08/18 00:18 Ur Epithelial Cells Many /hpf (0-5) H 09/08/18 00:18 Urine Bacteria Few /hpf (NONE) 09/08/18 00:18 Hyaline Casts 0 - 2 /hpf (NONE) 09/08/18 00:18 Urine HCG, Qual Negative (NEGATIVE) 09/08/18 00:18 Urine HCG, Qual Negative (NEGATIVE) 09/08/18 00:18 09/08/18 00:15 09/08/18 00:15 Lab Results 09/08/18 00:18: Urine Color Dark yellow, Urine Appearance Clear, Urine pH 6.0, Ur Specific Stevenson >= 1.030, Urine Protein Trace H, Urine Glucose (UA) Negative, Urine Ketones Trace H, Urine Blood Negative, Urine Nitrate Negative, Urine Bilirubin Negative, Urine Urobilinogen 0.2, Ur Leukocyte Esterase Small H, Urine RBC 0 - 2, Urine WBC 2 - 5, Ur Epithelial Cells Many H, Urine Bacteria Few, Hyaline Casts 0 - 2, Urine HCG, Qual Negative 09/08/18 00:15: Sodium 141, Potassium 4.4, Chloride 104, Carbon Dioxide 26, Anion Gap 16, BUN 21, Creatinine 1.6 H, Est GFR ( Amer) 40, Est GFR (Non- Af Amer) 33, Random Glucose 94, Calcium 9.7, Magnesium 1.7, Total Bilirubin 1.0, AST 24, ALT 10, Alkaline Phosphatase 76, Troponin I < 0.01, Total Protein 7.5, Albumin 4.0, Globulin 3.6, Albumin/Globulin Ratio 1.1, Lipase 104 09/08/18 00:15: PT 11.9, INR 1.07, APTT 35.3 09/08/18 00:15: WBC 8.9 D, RBC 4.43, Hgb 13.3, Hct 40.2, MCV 90.7, MCH 30.0, MCHC 33.1, RDW 13.6, Plt Count 228, MPV 9.6, Neut % (Auto) 58.5, Lymph % (Auto) 31.1, Glenn % (Auto) 6.8 H, Eos % (Auto) 3.4, Baso % (Auto) 0.2, Lymph # (Auto) 2.8, Glenn # (Auto) 0.6, Eos # (Auto) 0.3, Baso # (Auto) 0.02, Absolute Neuts (auto) 5.18 I have reviewed the lab results: Yes - RAD Interpretation Radiology Orders: 09/07/18 23:47 ABD & PELVIS W/O PO OR IV CONT [CT] Stat CHEST PORTABLE [RAD] Stat - EKG Interpretation EKG Interpretation (Text): 09/08/18 01:55 Rate 97; NSR; Prolonged QT; No STEMI, nonspecific ST/T wave changes Interpreted by ED Physician: Yes Type: 12 lead EKG - Medication Orders Current Medication Orders: Discontinued Medications Famotidine (Pepcid) 20 mg IVP STAT STA Stop: 09/07/18 23:48 Last Admin: 09/08/18 00:18 Dose: 20 mg IVP Administration Document 09/08/18 00:18 KV (Rec: 09/08/18 00:18 KV [id number]) Charges for Administration # of IVP Administrations 1 - Transfer of Care Patient signed out to Dr:: Jacob Sanz Pending Radiology Studies:: CT Abd/Pelvis without IV or PO contrast Other: Reassessment and Disposition <Mariana Baez - Last Filed: 09/08/18 01:56> ED Course and Treatment: 09/08/18 03:[address] doran, patient to be admitted for persistent pain, observation, CT shows enteritis inflammatory vs infectious. consult to dr. rasheed. 09/08/18 04:32 patient reports itchiness while flagyl infusing, discontinued - Lab Interpretations Lab Results: PT 11.9 SECONDS (9.4-12.5) 09/08/18 00:15 INR 1.07 09/08/18 00:15 APTT 35.3 Seconds (26.9-38.3) 09/08/18 00:15 Troponin I < 0.01 ng/mL 09/08/18 00:15 Total Bilirubin 1.0 mg/dL (0.2-1.3) 09/08/18 00:15 AST 24 U/L (14-36) 09/08/18 00:15 ALT 10 U/L (7-56) 09/08/18 00:15 Alkaline Phosphatase 76 U/L (38-126) 09/08/18 00:15 Total Protein 7.5 g/dL (5.8-8.3) 09/08/18 00:15 Albumin 4.0 g/dL (3.0-4.8) 09/08/18 00:15 Globulin 3.6 gm/dL 09/08/18 00:15 Albumin/Globulin Ratio 1.1 (1.1-1.8) 09/08/18 00:15 Lipase 104 U/L (23-300) 09/08/18 00:15 Urine Color Dark yellow (YELLOW) 09/08/18 00:18 Urine Appearance Clear (CLEAR) 09/08/18 00:18 Urine pH 6.0 (4.7-8.0) 09/08/18 00:18 Ur Specific Stevenson >= 1.030 (1.005-1.035) 09/08/18 00:18 Urine Protein Trace mg/dL (<30 mg/dL) H 09/08/18 00:18 Urine Glucose (UA) Negative mg/dL (NEGATIVE) 09/08/18 00:18 Urine Ketones Trace mg/dL (NEGATIVE) H 09/08/18 00:18 Urine Blood Negative (NEGATIVE) 09/08/18 00:18 Urine Nitrate Negative (NEGATIVE) 09/08/18 00:18 Urine Bilirubin Negative (NEGATIVE) 09/08/18 00:18 Urine Urobilinogen 0.2 E.U./dL (<1 E.U./dL) 09/08/18 00:18 Ur Leukocyte Esterase Small Jordan/uL (NEGATIVE) H 09/08/18 00:18 Urine RBC 0 - 2 /hpf (0-2) 09/08/18 00:18 Urine WBC 2 - 5 /hpf (0-6) 09/08/18 00:18 Ur Epithelial Cells Many /hpf (0-5) H 09/08/18 00:18 Urine Bacteria Few /hpf (NONE) 09/08/18 00:18 Hyaline Casts 0 - 2 /hpf (NONE) 09/08/18 00:18 Urine HCG, Qual Negative (NEGATIVE) 09/08/18 00:18 Urine HCG, Qual Negative (NEGATIVE) 09/08/18 00:18 - RAD Interpretation Narrative RAD Interpretations (Text): 09/08/18 02:38 CT Abdomen and Pelvis without IV contrast: --Enteritis. Infectious and inflammatory etiologies are considered. Consider consultation with GI service. --The uterus is bulky mildly enlarged containing fibroids. Radiology Orders: 09/07/18 23:47 ABD & PELVIS W/O PO OR IV CONT [CT] Stat CHEST PORTABLE [RAD] Stat Hotel Desk Clerk: Radiologist - Medication Orders Current Medication Orders: Discontinued Medications Famotidine (Pepcid) 20 mg IVP STAT STA Stop: 09/07/18 23:48 Last Admin: 09/08/18 00:18 Dose: 20 mg IVP Administration Document 09/08/18 00:18 KV (Rec: 09/08/18 00:18 KV [id number]) Charges for Administration # of IVP Administrations 1 <Jacob Sanz - Last Filed: 09/08/18 04:33> Disposition/Present on Arrival - Present on Arrival Any Indicators Present on Arrival: No History of DVT/PE: No History of Uncontrolled Diabetes: No Urinary Catheter: No History of Decub. Ulcer: No History Surgical Site Infection Following: Orthopedic Procedures - Disposition Have Diagnosis and Disposition been Completed?: No Disposition Time: 02:00 <Mariana Baez - Last Filed: 09/08/18 01:56> - Disposition Disposition Time: 03:24 Patient Plan: Admission <Jacob Sanz - Last Filed: 09/08/18 04:33> - Disposition Diagnosis: Abdominal pain, Chest pain Disposition: HOSPITALIZED Patient Problems: Current Active Problems Problem Status Onset Chest pain Acute Abdominal pain Acute Condition: STABLE
[2018-09-08] MEDS ORDERED: Ciprofloxacin 400mg/200ml D5W 400 MG/200 ML BAG IVPB STA (03:27)
[2018-09-08] MEDS ORDERED: metroNIDAZOLE IV 500 mg/100 ml 500 MG/100 ML BAG IVPB STA (03:27)
[2018-09-08] MEDS ORDERED: DiphenhydrAMINE 50 mg/ml Inj IVP STA (04:33)
[2018-09-08 06:03] VITALS: BMI 25.8
[2018-09-08 06:09] VITALS: RESP 20
--- NOTE | 2018-09-08 08:13 | CP.PCM.CON ---
<Chan Doe - Last Filed: 09/08/18 12:22> History of Present Illness - History of Present Illness History of Present Illness: Chan Doe PGY2 GI Consult Note for Dr. Rasheed Reason for consult: enteritis, patient is known to Dr. Rasheed Ms. Beatty is a 58 year old AAF with a PMH of heart transplant (2006) due [place] in 2003 and multiple episodes of cardiac arrest in 2003 following this FL and a spinal fusion in 2004 when she went into systolic dysfunction heart failure. also has Hx of DM2. Patient underwent EGD and colonoscopy w/ bx on 07/25/[address] Rasheed and is admitted now because she has been having increased abdominal pain, flatulence and indigestion since that period. She has also been having postprandial diarrhea since that time and an episode of vomiting 4 days ago, and Dr. Rasheed recommended that she come in to be evaluated. Patient states that her symptoms are all postprandial and improve with fasting. Her diarrhea is only after food, regardless of what type of food she has, and it's brown in color with no streaks of blood or greasy/oily looking. She denies fevers/chills or urinary changes. Of note, patient is on chronic immunosuppressive therapy w/ Tacrolimus due to her heart transplant. 12-pt ROS was reviewed and is otherwise unremarkable. Review of prior endoscopies: EGD (07/2018): gastritis (bx: mild chronic inflammation) and gastric polyp Colonoscopy (07/2018): sessile adenomatous polyps, diverticulosis and internal hemorrhoids PMD: Dr. Guadarrama PMH: as above PSH: heart transplant, cholecystectomy, multiple right knee surgeries Meds: reviewed Allergies: significant list reviewed SHx: former tobacco user, denies EtOH or drug use. not currently working; on disability FHx: father ([place], 37yo); mother (stomach [place]; 62yo) Review of Systems - Review of Systems All systems: reviewed and no additional remarkable complaints except (as per HPI) Past Patient History - Infectious Disease Hx of Infectious Diseases: None - Tetanus Immunizations Tetanus Immunization: Unknown - Past Social History Smoking Status: Former Smoker Alcohol: None Drugs: Denies - CARDIAC Hx Pacemaker: No - PULMONARY Hx Respiratory Disorders: Yes Hx Bronchitis: Yes Hx Sleep Apnea: Yes - NEUROLOGICAL Hx Dizziness: Yes - HEENT Hx HEENT Problems: No - RENAL Hx Chronic Kidney Disease: No - ENDOCRINE/METABOLIC Hx Diabetes Mellitus Type 2: Yes - HEMATOLOGICAL/ONCOLOGICAL Hx Blood Disorders: No - INTEGUMENTARY Hx Dermatological Problems: No - MUSCULOSKELETAL/RHEUMATOLOGICAL Hx Musculoskeletal Disorders: Yes Hx Falls: No - GASTROINTESTINAL Hx Gall Bladder Disease: Yes - GENITOURINARY/GYNECOLOGICAL Hx Genitourinary Disorders: Yes (cystitis) - PSYCHIATRIC Hx Emotional Abuse: No Hx Physical Abuse: No Hx Substance Use: No - SURGICAL HISTORY Hx Joint Replacement: Yes (right hip) Hx Open Heart Surgery: Yes (heart transplant) - ANESTHESIA Hx Anesthesia: Yes Hx Anesthesia Reactions: No Hx Malignant Hyperthermia: No Meds Allergies/Adverse Reactions: Allergies Allergy/AdvReac Type Severity Reaction Status Date / Time acetaminophen Allergy RASH Verified 09/08/18 04:07 amoxicillin Allergy DIARRHEA Verified 09/08/18 04:07 amoxicillin trihydrate Allergy DIARRHEA Verified 09/08/18 04:07 [From Augmentin] apple Allergy RASH Verified 09/08/18 04:07 cat dander Allergy CONGESTION Verified 09/08/18 04:07 clavulanic acid Allergy DIARRHEA Verified 09/08/18 04:07 codeine Allergy RASH Verified 09/08/18 04:07 dog dander Allergy CONGESTION Verified 09/08/18 04:07 doxycycline Allergy DIARRHEA Verified 09/08/18 04:07 grass pollen Allergy CONGESTION Verified 09/08/18 04:07 hydrocodone Allergy RASH Verified 09/08/18 04:07 hydrocodone bitartrate Allergy RASH Verified 09/08/18 04:07 [From Vicodin] ibuprofen Allergy ANAPHYLAXIS Verified 09/08/18 04:07 iodine Allergy RASH Verified 09/08/18 04:07 Latex, Natural Rubber Allergy RASH Verified 09/08/18 04:07 levofloxacin Allergy RASH Verified 09/08/18 04:07 megestrol Allergy ANAPHYLAXIS Verified 09/08/18 04:07 metronidazole Allergy DIARRHEA Verified 09/08/18 04:07 mold Allergy CONGESTION Verified 09/08/18 04:07 naproxen Allergy ANAPHYLAXIS Verified 09/08/18 04:07 nitrofurantoin Allergy RASH Verified 09/08/18 04:07 macrocrystalline [From Macrobid] oxycodone HCl [From Percocet] Allergy RASH Verified 09/08/18 04:07 potassium clavulanate Allergy DIARRHEA Verified 09/08/18 04:07 [From Augmentin] shellfish derived Allergy RASH Verified 09/08/18 04:07 tomato Allergy RASH Verified 09/08/18 04:07 vancomycin Allergy RASH Verified 09/08/18 04:07 hot sauc Allergy RASH Uncoded 09/08/18 04:07 ketchu Allergy RASH Uncoded 09/08/18 04:07 mustard Allergy RASH Uncoded 09/08/18 04:07 Physical Exam - Constitutional Appears: Well, Non-toxic, No Acute Distress - Head Exam Head Exam: ATRAUMATIC, NORMAL INSPECTION, NORMOCEPHALIC - Eye Exam Eye Exam: EOMI, Normal appearance, PERRL Pupil Exam: NORMAL ACCOMODATION, PERRL - ENT Exam ENT Exam: Mucous Membranes Moist, Normal Exam, Normal Oropharynx - Neck Exam Neck exam: Positive for: Full Rom, Normal Inspection - Respiratory Exam Respiratory Exam: Clear to Auscultation Bilateral, NORMAL BREATHING PATTERN. absent: Rales, Rhonchi, Respiratory Distress - Cardiovascular Exam Cardiovascular Exam: RRR, +S1, +S2 - GI/Abdominal Exam GI & Abdominal Exam: Normal Bowel Sounds, Soft. absent: Distended, Guarding, Tenderness - Extremities Exam Extremities exam: Positive for: full ROM, normal inspection. Negative for: pedal edema - Back Exam Back exam: NORMAL INSPECTION. absent: tenderness - Neurological Exam Neurological exam: Alert, CN II-XII Intact, Normal Gait, Oriented x3, Reflexes Normal - Skin Skin Exam: Dry, Intact, Normal Color, Warm Results - Vital Signs Recent Vital Signs: Last Vital Signs Temp 97.5 F L 09/08/18 06:49 Pulse 79 09/08/18 06:49 Resp 20 09/08/18 06:49 BP 101/64 09/08/18 06:49 Pulse Ox 98 09/08/18 06:49 - Labs Result Diagrams: 09/08/18 00:15 09/08/18 00:15 Labs: Laboratory Results - last 24 hr 09/08/18 09/08/18 09/08/18 00:15 00:15 00:15 WBC 8.9 D RBC 4.43 Hgb 13.3 Hct 40.2 MCV 90.7 MCH 30.0 MCHC 33.1 RDW 13.6 Plt Count 228 MPV 9.6 Neut % (Auto) 58.5 Lymph % (Auto) 31.1 Nolan % (Auto) 6.8 H Eos % (Auto) 3.4 Baso % (Auto) 0.2 Lymph # (Auto) 2.8 Nolan # (Auto) 0.6 Eos # (Auto) 0.3 Baso # (Auto) 0.02 Absolute Neuts (auto) 5.18 PT 11.9 INR 1.07 APTT 35.3 Sodium 141 Potassium 4.4 Chloride 104 Carbon Dioxide 26 Anion Gap 16 BUN 21 Creatinine 1.6 H Est GFR ( Amer) 40 Est GFR (Non-Af Amer) 33 Random Glucose 94 Calcium 9.7 Magnesium 1.7 Total Bilirubin 1.0 AST 24 ALT 10 Alkaline Phosphatase 76 Troponin I < 0.01 Total Protein 7.5 Albumin 4.0 Globulin 3.6 Albumin/Globulin Ratio 1.1 Lipase 104 Urine Color Urine Appearance Urine pH Ur Specific [place] Urine Protein Urine Glucose (UA) Urine Ketones Urine Blood Urine Nitrate Urine Bilirubin Urine Urobilinogen Ur Leukocyte Esterase Urine RBC Urine WBC Ur Epithelial Cells Urine Bacteria Hyaline Casts Urine HCG, Qual 09/08/18 00:18 WBC RBC Hgb Hct MCV MCH MCHC RDW Plt Count MPV Neut % (Auto) Lymph % (Auto) Nolan % (Auto) Eos % (Auto) Baso % (Auto) Lymph # (Auto) Nolan # (Auto) Eos # (Auto) Baso # (Auto) Absolute Neuts (auto) PT INR APTT Sodium Potassium Chloride Carbon Dioxide Anion Gap BUN Creatinine Est GFR ( Amer) Est GFR (Non-Af Amer) Random Glucose Calcium Magnesium Total Bilirubin AST ALT Alkaline Phosphatase Troponin I Total Protein Albumin Globulin Albumin/Globulin Ratio Lipase Urine Color Dark yellow Urine Appearance Clear Urine pH 6.0 Ur Specific [place] >= 1.030 Urine Protein Trace H Urine Glucose (UA) Negative Urine Ketones Trace H Urine Blood Negative Urine Nitrate Negative Urine Bilirubin Negative Urine Urobilinogen 0.2 Ur Leukocyte Esterase Small H Urine RBC 0 - 2 Urine WBC 2 - 5 Ur Epithelial Cells Many H Urine Bacteria Few Hyaline Casts 0 - 2 Urine HCG, Qual Negative Assessment & Plan - Assessment and Plan (Free Text) Assessment: 58 year old AAF with A PMH of heart transplant on immunosuppresive therapy, DM2 and CHFrEF who is admitted for evaluation of continued dyspepsia and diarrhea for more than one month. Give chronicity of diarrhea and immunosuppresed state, the patient is at risk for inflammatory and opportunistic infectious etiologies. Plan: - will begin hydration with NS @ 100 - will order MRI abd w/ MRCP to r/o pancreatic etiology - will order stool c.dff - will order stool cultures - will order stool electrolytes to calculate anion gap - will order stool ova/parasites - will order CMV and giardia given that patient is immunocompromised - CT Reviewed showing eneteritis - Diet advanced - recommend an ID consult given immunocompromised state - discussed in full detail w/ Dr. Guadarrama - further recs per Dr. Rasheed Case was reviewed and discussed with Dr. Rasheed <Wagner Rasheed V - Last Filed: 09/08/18 19:53> Meds - Medications Medications: Current Medications Amlodipine Besylate (Norvasc) 10 mg PO DAILY [facility] Last Admin: 09/08/18 10:54 Dose: 10 mg Aspirin (Aspirin Chewable) 81 mg PO DAILY [facility] Atorvastatin Calcium (Lipitor) 10 mg PO HS [facility] Calcium Carbonate (Oscal) 250 mg PO DAILY [facility] Last Admin: 09/08/18 10:54 Dose: 250 mg Carvedilol (Coreg) 12.5 mg PO BID [facility] Last Admin: 09/08/18 18:59 Dose: 12.5 mg Diphenhydramine HCl (Benadryl) 25 mg PO HS PRN PRN Reason: Allergy symptoms Duloxetine HCl (Cymbalta) 20 mg PO DAILY [facility] Last Admin: 09/08/18 10:54 Dose: 20 mg Sodium Chloride (Sodium Chloride 0.9%) 1,000 mls @ 100 mls/hr IV .Q10H [facility] Last Admin: 09/08/18 10:56 Dose: 100 mls/hr Lisinopril (Zestril) 5 mg PO HS [facility] Montelukast Sodium (Singulair) 10 mg PO HS [facility] Multivitamins/Minerals (Therapeutic-M Tab) 1 tab PO DAILY [facility] Non-Formulary Medication (Dulaglutide [Trulicity]) 0.5 ml SC QWK [facility] Pantoprazole Sodium (Protonix Ec Tab) 40 mg PO DAILY [facility] Last Admin: 09/08/18 11:00 Dose: Not Given Tacrolimus (Prograf Cap) 4 mg PO 1000,2330 [facility] Tacrolimus (Prograf Cap) 0.5 mg PO 1000,2330 [facility] Trazodone HCl (Desyrel) 150 mg PO HS [facility] Results - Vital Signs Recent Vital Signs: Last Vital Signs Temp 98.1 F 09/08/18 16:51 Pulse 81 09/08/18 16:51 Resp 20 09/08/18 16:51 BP 111/72 09/08/18 16:51 Pulse Ox 95 09/08/18 16:51 - Labs Result Diagrams: 09/08/18 00:15 09/08/18 00:15 Labs: Laboratory Results - last 24 hr 09/08/18 09/08/18 09/08/18 00:15 00:15 00:15 WBC 8.9 D RBC 4.43 Hgb 13.3 Hct 40.2 MCV 90.7 MCH 30.0 MCHC 33.1 RDW 13.6 Plt Count 228 MPV 9.6 Neut % (Auto) 58.5 Lymph % (Auto) 31.1 Nolan % (Auto) 6.8 H Eos % (Auto) 3.4 Baso % (Auto) 0.2 Lymph # (Auto) 2.8 Nolan # (Auto) 0.6 Eos # (Auto) 0.3 Baso # (Auto) 0.02 Absolute Neuts (auto) 5.18 PT 11.9 INR 1.07 APTT 35.3 Sodium 141 Potassium 4.4 Chloride 104 Carbon Dioxide 26 Anion Gap 16 BUN 21 Creatinine 1.6 H Est GFR ( Amer) 40 Est GFR (Non-Af Amer) 33 Random Glucose 94 Hemoglobin A1c Calcium 9.7 Magnesium 1.7 Iron TIBC % Saturation Total Bilirubin 1.0 AST 24 ALT 10 Alkaline Phosphatase 76 Troponin I < 0.01 Total Protein 7.5 Albumin 4.0 Globulin 3.6 Albumin/Globulin Ratio 1.1 Triglycerides Cholesterol LDL Cholesterol Direct HDL Cholesterol Amylase Lipase 104 Vitamin B12 Folate Urine Color Urine Appearance Urine pH Ur Specific [place] Urine Protein Urine Glucose (UA) Urine Ketones Urine Blood Urine Nitrate Urine Bilirubin Urine Urobilinogen Ur Leukocyte Esterase Urine RBC Urine WBC Ur Epithelial Cells Urine Bacteria Hyaline Casts Urine HCG, Qual 09/08/18 09/08/18 09/08/18 00:18 11:30 11:30 WBC RBC Hgb Hct MCV MCH MCHC RDW Plt Count MPV Neut % (Auto) Lymph % (Auto) Nolan % (Auto) Eos % (Auto) Baso % (Auto) Lymph # (Auto) Nolan # (Auto) Eos # (Auto) Baso # (Auto) Absolute Neuts (auto) PT INR APTT Sodium Potassium Chloride Carbon Dioxide Anion Gap BUN Creatinine Est GFR ( Amer) Est GFR (Non-Af Amer) Random Glucose Hemoglobin A1c Calcium Magnesium Iron 49 TIBC 248 L % Saturation 20 Total Bilirubin AST ALT Alkaline Phosphatase Troponin I Total Protein Albumin Globulin Albumin/Globulin Ratio Triglycerides 140 Cholesterol 157 LDL Cholesterol Direct 81 HDL Cholesterol 32 Amylase Lipase Vitamin B12 725 Folate > 20.0 Urine Color Dark yellow Urine Appearance Clear Urine pH 6.0 Ur Specific [place] >= 1.030 Urine Protein Trace H Urine Glucose (UA) Negative Urine Ketones Trace H Urine Blood Negative Urine Nitrate Negative Urine Bilirubin Negative Urine Urobilinogen 0.2 Ur Leukocyte Esterase Small H Urine RBC 0 - 2 Urine WBC 2 - 5 Ur Epithelial Cells Many H Urine Bacteria Few Hyaline Casts 0 - 2 Urine HCG, Qual Negative 09/08/18 09/08/18 11:30 11:30 WBC RBC Hgb Hct MCV MCH MCHC RDW Plt Count MPV Neut % (Auto) Lymph % (Auto) Nolan % (Auto) Eos % (Auto) Baso % (Auto) Lymph # (Auto) Nolan # (Auto) Eos # (Auto) Baso # (Auto) Absolute Neuts (auto) PT INR APTT Sodium Potassium Chloride Carbon Dioxide Anion Gap BUN Creatinine Est GFR ( Amer) Est GFR (Non-Af Amer) Random Glucose Hemoglobin A1c 6.3 Calcium Magnesium Iron TIBC % Saturation Total Bilirubin AST ALT Alkaline Phosphatase Troponin I Total Protein Albumin Globulin Albumin/Globulin Ratio Triglycerides Cholesterol LDL Cholesterol Direct HDL Cholesterol Amylase 50 Lipase 81 Vitamin B12 Folate Urine Color Urine Appearance Urine pH Ur Specific [place] Urine Protein Urine Glucose (UA) Urine Ketones Urine Blood Urine Nitrate Urine Bilirubin Urine Urobilinogen Ur Leukocyte Esterase Urine RBC Urine WBC Ur Epithelial Cells Urine Bacteria Hyaline Casts Urine HCG, Qual Attending/Attestation - Attestation I have personally seen and examined this patient.: Yes I have fully participated in the care of the patient.: Yes I have reviewed all pertinent clinical information: Yes Notes (Text): Patient was seen and evaluated along with the senior medical technologist here earlier today. This is an addendum to the GI consultation report dictated by the resident. Status post heart transplant patient complains of episodes of abdominal pain for more than 3 months progressively getting worse now. Patient did have an EGD and a colonoscopy done in the past. Describes episodes of diarrhea. Patient has multiple allergies. Recent CT scan was reviewed suggestive of possible enteritis. Discussed with the heart transplant team in [facility] and recommended transfer. We originally planned MRI and a follow-up stool studies. ID evaluation pending in view of this immunocompromised status and a possible enteritis patient does have reduced renal function continue IV hydration and liquid diet 09/08/18 19:48
--- NOTE | 2018-09-08 09:42 | RAD ---
Date of service: 09/07/2018 HISTORY: epigastric pain COMPARISON: 06/09/2017 FINDINGS: LUNGS: No active pulmonary disease. PLEURA: No significant pleural effusion identified, no pneumothorax apparent. CARDIOVASCULAR: No aortic atherosclerotic calcification present. Mild cardiomegaly no pulmonary vascular congestion. OSSEOUS STRUCTURES: Sternal wires VISUALIZED UPPER ABDOMEN: Normal. OTHER FINDINGS: None. IMPRESSION: No active disease.
[2018-09-08] MEDS ORDERED: Pantoprazole 40 mg EC Tab PO SCH (10:15)
[2018-09-08] MEDS ORDERED: Sodium Chloride 0.9% 1,000 ML IV SCH (10:45)
--- NOTE | 2018-09-08 10:47 | CT ---
Date of service: 09/08/2018 PROCEDURE: CT Abdomen and Pelvis without intravenous contrast HISTORY: epigastric pain, allergy to contrast COMPARISON: 2016 TECHNIQUE: Technique. Contrast dose: Radiation dose: Total exam DLP = 978.65 mGy-cm. This CT exam was performed using one or more of the following dose reduction techniques: Automated exposure control, adjustment of the mA and/or kV according to patient size, and/or use of iterative reconstruction technique. FINDINGS: LOWER THORAX: Unremarkable. LIVER: Unremarkable. No gross lesion or ductal dilatation. GALLBLADDER AND BILE DUCTS: Cholecystectomy. PANCREAS: Unremarkable. No gross lesion or ductal dilatation. SPLEEN: Unremarkable. ADRENALS: Unremarkable. No mass. KIDNEYS AND URETERS: Unremarkable. No hydronephrosis. No solid mass. VASCULATURE: Unremarkable. No aortic aneurysm. No aortic atherosclerotic calcification or mural plaque present. BOWEL: Unremarkable. No obstruction. No gross mural thickening. APPENDIX: Unremarkable. Normal appendix. PERITONEUM: Unremarkable. No free fluid. No free air. LYMPH NODES: Unremarkable. No enlarged lymph nodes. BLADDER: Unremarkable. REPRODUCTIVE: Fibroid uterus. BONES: No acute fracture. OTHER FINDINGS: None. IMPRESSION: Fibroid uterus. Cholecystectomy.
[2018-09-08 11:53] LABS: HDL CHOLESTEROL 32 mg/dL (29-60); IRON 49 ug/dL (45-180)
[2018-09-08 12:02] LABS: % IRON SATURATION 20 % (20-55); TOTAL IRON BINDING CAPACITY 248 ug/dL (265-497)
[2018-09-08 12:04] LABS: LDL CHOLESTEROL 81 mg/dL (0-129)
--- NOTE | 2018-09-08 12:10 | CP.PCM.APN ---
Subjective - Date & Time of Evaluation Date of Evaluation: 09/08/18 Time of Evaluation: 12:01 - Subjective Subjective: pt seen and examined at bedside, states she feels better,denies n/v/d sates abd pain is better than yesterday Review of Systems - Review of Systems All systems: reviewed and no additional remarkable complaints except Objective - Vital Signs/Intake and Output Vital Signs (last 24 hours): Temp Pulse Resp BP Pulse Ox 97.5 F L 79 20 101/64 98 09/08/18 06:49 09/08/18 06:49 09/08/18 06:49 09/08/18 06:49 09/08/18 06:49 - Medications Medications: Current Medications Amlodipine Besylate (Norvasc) 10 mg PO DAILY [facility] Aspirin (Aspirin Chewable) 81 mg PO DAILY [facility] Atorvastatin Calcium (Lipitor) 10 mg PO HS [facility] Calcium Carbonate (Oscal) 250 mg PO DAILY [facility] Carvedilol (Coreg) 12.5 mg PO BID [facility] Diphenhydramine HCl (Benadryl) 25 mg PO HS PRN PRN Reason: Allergy symptoms Duloxetine HCl (Cymbalta) 20 mg PO DAILY [facility] Home Med (Home Med) 4.5 unit PO HS [facility] Sodium Chloride (Sodium Chloride 0.9%) 1,000 mls @ 100 mls/hr IV .Q10H [facility] Lisinopril (Zestril) 5 mg PO HS [facility] Montelukast Sodium (Singulair) 10 mg PO HS [facility] Non-Formulary Medication (Dulaglutide [Trulicity]) 0.5 ml SC QWK [facility] Non-Formulary Medication (Multivit-Minerals/Folic Acid [Adult One Daily Multivit Tab]) 1 tab PO DAILY [facility] Pantoprazole Sodium (Protonix Ec Tab) 40 mg PO DAILY [facility] Trazodone HCl (Desyrel) 150 mg PO HS [facility] - Labs Labs: 09/08/18 00:15 09/08/18 00:15 PT 11.9 SECONDS (9.4-12.5) 09/08/18 00:15 INR 1.07 09/08/18 00:15 APTT 35.3 Seconds (26.9-38.3) 09/08/18 00:15 - Constitutional Appears: No Acute Distress - ENT Exam ENT Exam: Normal Exam - Respiratory Exam Respiratory Exam: Decreased Breath Sounds, NORMAL BREATHING PATTERN - Cardiovascular Exam Cardiovascular Exam: +S1, +S2 - GI/Abdominal Exam GI & Abdominal Exam: Soft, Normal Bowel Sounds - Extremities Exam Extremities Exam: Normal Capillary Refill - Neurological Exam Neurological Exam: Alert, Awake, Oriented x3 - Psychiatric Exam Psychiatric exam: Normal Affect, Normal Mood - Skin Skin Exam: Dry, Intact Assessment and Plan - Assessment and Plan (Free Text) Plan: ITS Impressions Abdomen/Pelvis CT 09/07/18 23:47 IMPRESSION: Fibroid uterus. Cholecystectomy. Chest X-Ray 09/07/18 23:47 IMPRESSION: No active disease. 58 yr old AA female with pmh sig for mi, chf, heart transplant who was admitted for c/o of abd pain associated with non-bloody diarrhea s/p recent colonoscopy. pt is now admitted for further eval with GI and ID consultation for possible enteritis ( viral vs bacterial) with pancultures pending. pt continues on iv fluids and clear liquid diet pt noted for abd mri and mrcp per GI. will continue to follow clinical course. [facility] BPCI/TIC - BPCIA/TIC Educated pt/family on BPCIA/CIR/Med to Bed Programs: N/A Flyers given, including CMS Beneficiary letter: N/A Pt/family verbalized understanding & agreed to program: N/A
--- NOTE | 2018-09-08 12:48 | CON ---
DATE: 09/08/2018 PULMONARY CONSULTATION NOTE REFERRING PHYSICIAN: Nazia Guadarrama MD REASON FOR CONSULTATION: Chronic lung disease and sleep apnea. HISTORY OF PRESENT ILLNESS: This is a 58-year-old female with past medical history significant for coronary artery disease, heart transplant, CHF, chronic lung disease, sleep apnea, who presented to emergency room complaining of abdominal pain for about 1 and half month. The patient reports that pain began after a colonoscopy on July 25, 2018. As per the patient colonoscopy was significant for polyps; otherwise, was a normal colonoscopy. The patient reports abdominal pain is burning with worse pain felt in epigastric area. Reports that when she eat she feels bloated, also reported having diarrhea every other day and chest pain/chest discomfort which was worse with bowel movements. Also reported vomiting once 4 days ago. The patient spoke with her business continuity coordinator who recommend she come to the emergency department. Today, the patient seen lying in bed. No acute distress noted. PAST MEDICAL HISTORY: Cardiomyopathy, status post heart transplant, hypertension, chronic lung disease, diabetes, anemia, history of gastric ulcers, depression, degenerative joint disease and sleep apnea. FAMILY HISTORY: No significant cardiopulmonary disease reported. SOCIAL HISTORY: Nonsmoker. No EtOH abuse. No illicit drug use. ALLERGIES: ACETAMINOPHEN, AMOXICILLIN TRIHYDRATE, APPLES, CATS, CODEINE, DOXYCYCLINE, HYDROCODONE, IBUPROFEN, LASIX, LEVAQUIN, MEGESTROL, METRONIDAZOLE, NAPROXEN, NITROFURANTOIN, AUGMENTIN, SHELLFISH, TOMATO AND VANCOMYCIN. MEDICATIONS: Reviewed. Norvasc 10 mg daily, aspirin 81 mg daily, Lipitor 10 mg at bedtime, Os-Kristian 250 mg daily, Coreg 12.5 mg twice a day, Benadryl 25 mg at bedtime p.r.n., Cymbalta 20 mg daily, lisinopril 5 mg at bedtime, Singulair 10 mg at bedtime, multivitamin daily, Trulicity 0.5 mL subcutaneously weekly, Protonix 40 mg daily, sodium chloride 0.9% a 1000 mL at 100 mL per hour and trazodone 150 mg daily. REVIEW OF SYSTEMS: Unable to be done, this patient is not answering questions for review of systems. PHYSICAL EXAMINATION: Unable to be done. GENERAL: The patient lying in bed. No visible acute distress. VITAL SIGNS: Blood pressure 101/64, pulse 79, temperature 97.5 and oxygen saturation 98% on room air. Other systems unable to be examined as the patient refuses examination. LABORATORY DATA: Reviewed. WBC 8.9, RBC 4.43, hemoglobin 13.3, hematocrit 40.2 and platelets 228. PT 11.9, INR 1.07 and APTT 35.3. Sodium 141, potassium 4.4, chloride 104, carbon dioxide 26, anion gap 16, BUN 21, creatinine 1.6, GFR 40, random glucose 94, calcium 9.7, magnesium 1.7, total bilirubin 1.0, AST 24, ALT 10, alkaline phosphatase 76, troponin less than 0.01, total protein 7.5, albumin 4.0, globulin 3.6 and albumin-globulin ratio 1.1. Lipase 104. Urinalysis shows urine protein trace, urine ketones trace, urine leukocyte esterase small, urine epithelial cells. Abdominal or pelvis CT shows fibroid uterus and cholecystectomy. Chest x-ray shows no active disease. IMPRESSION AND PLAN: Abdominal pain, the patient has history of status post heart transplant, cardiomyopathy, obstructive sleep apnea syndrome, chronic lung disease, diabetes, circadian rhythm disorder, degenerative joint disease. The patient at this time refusing to be followed by us for pulmonary or sleep. We do recommend the patient be on inhaled bronchodilators for chronic lung disease. The patient should be using continuous positive airway pressure machine for sleep apnea. At this time we will sign off as the patient does not want to be examined or followed by us. We will notify attending. This patient was seen and examined with Dr. Kim. Discussed assessment and plan as described above. This patient was seen and examined by Oscar Rai, nurse practitioner. Discussed assessment and plan as described above. Thank you for this consult and we will follow with you. Oscar Rai APN Sandra Kim MD [facility]
[2018-09-08 13:12] LABS: AMYLASE 50 U/L (35-125); LIPASE 81 U/L (23-300)
[2018-09-08 16:52] VITALS: BP 111/72; PULSE 81; TEMP 98.1; O2SAT 95
--- NOTE | 2018-09-08 16:57 | CARD ---
APPROVED REPORT Date of service: 09/07/2018 EKG Measurement Heart [id number] <Conclusion> Sinus rhythm with premature atrial complexes Incomplete RBBB ST & T wave abnormality, consider anterior ischemia Prolonged QT Abnormal ECG
[2018-09-08 17:16] LABS: FOLATE > 20.0 ng/mL
[2018-09-08] MEDS ORDERED: TRAZODONE HCL 150 MG PO SCH (22:00)
[2018-09-08] MEDS ORDERED: Home Med 1 UNIT PO SCH (22:00)
[2018-09-08] MEDS ORDERED: Non Formulary Medication (Pravastatin Sodium [Pravachol] 40 MG) PO SCH (22:00)
--- NOTE | 2018-09-08 23:20 | HP ---
DATE OF EXAM: 09/08/2018 The patient was seen and examined at the bedside on 09/08/2018. CHIEF COMPLAINT: Abdominal pain and diarrhea. HISTORY OF PRESENT ILLNESS: Ms. Yaz Beatty is a 58-year-old female with past medical history of coronary artery disease, heart transplantation in 2006, congestive heart failure, rheumatoid arthritis, depression came in [facility] for abdominal pain, status post endoscopy and colonoscopy by Dr. Rasheed in July. Pain began after colonoscopy. Colonoscopy was significant for polyps, otherwise normal as per GI. Abdominal pain is described as primarily generalized, worse epigastric pain, especially after eating. Since then every time she eats, she feels bloated causing decreased p.o. intake associated with nonbloody diarrhea every other day and chest pain and she describes as a vague discomfort, worse with bowel movement. No nausea, vomiting, diarrhea now. Vomited once four days ago, nonbloody, nonbilious. Actually, the patient spoke to her GI doctor, who recommended going to the emergency room. Dr. Rasheed wants CAT scan. No shortness of breath. No chills. No hematuria. No hematochezia. PAST MEDICAL HISTORY: History of bronchitis, sleep apnea, COPD, diabetes mellitus type II, history of blood transfusion due to anemia, gastrointestinal disease, cystitis, history of right joint replacement, heart transplant. FAMILY HISTORY: Father and mother, noncontributory. SOCIAL HISTORY: Former smoker, now not smoking, quit many years ago. Alcohol, periodically socially. Substance abuse, never. ALLERGIES: ALLERGIC TO ACETAMINOPHEN, AMOXYCILLIN, APPLE, CAT DANDER, CLAVULANATE, CODEINE, DOG DANDER, DOXYCYCLINE, GRASS POLLEN, HYDROCODONE, IBUPROFEN, IODINE, LATEX, LEVOFLAXACIN, MEGESTROL, METRONIDAZOLE, MOLD, NAPROXEN, NITROFURANTOIN, OXYCODONE, POTASSIUM, HOT SAUCE, VANCOMYCIN, TOMATOES, SHELLFISH, KETCHUP, MUSTARD. HOME MEDICATIONS: Reviewed by me. Aspirin, Coreg, Zestril, Singulair, Norvasc, Cymbalta, tacrolimus. REVIEW OF SYSTEMS: The patient is seen at the bedside in her room, looking comfortable. No fever. No chills. No hematuria. No hematochezia. Having just abdominal pain. No shortness of breath at this moment. PHYSICAL EXAMINATION: VITAL SIGNS: Temperature 98.4, pulse 89, respiratory rate 16, blood pressure 103/58, and pulse oximetry 96. HEENT: Head is normocephalic and atraumatic. Eyes: PERRLA. Extraocular muscles intact. Conjunctivae clear. Nose patent. NECK: Supple. No carotid bruits, JVD, or thyromegaly. CHEST: Bilaterally symmetrical. HEART: S1 and S2 positive. LUNGS: Clear to auscultation. ABDOMEN: Soft. Bowel sounds present. No organomegaly. EXTREMITIES: No edema. No cyanosis. NEUROLOGIC: The patient is awake and alert. Moving all four extremities. No focal deficit. LABORATORY DATA: White blood cells 8.9, hemoglobin 13.2, hematocrit 40.2, and platelets 228. Sodium 141, potassium 4.4, BUN 21, creatinine 1.6, AST 24, and ALT 10. Has proteinuria and ketonuria and leukocyte esterase. ASSESSMENT AND PLAN: Ms. Yaz Beatty is a 58-year-old lady with proteinuria and ketonuria urinary tract infection, came with abdominal pain, status post endoscopy. The patient has a history of heart transplant in 2006 due to myocardial infarction and congestive heart failure, multiple episodes of cardiac arrest in 2003 followed by myocardial infarction and spinal fusion in 2004 and diabetes mellitus. EGD in 07/2018, according to that she has gastritis, mild and gastric polyps. Colonoscopy 07/2018, sessile, edematous polyp, diverticulosis and internal hemorrhoids. History of cholecystectomy, right knee surgery. CAT scan of the abdomen, results are pending. The patient is on immunosuppressive therapy. History of dyspepsia and diarrhea. The patient is at risk of inflammatory and opportunistic infection entirely due to defect of immunosuppressive status and chronic diarrhea. Gastrointestinal is on the case. They ordered stool Clostridium difficile, stool culture, stool electrolytes, stool ova and parasite, CMV, and Giardia. Currently, she is on tube but I put her on clear liquid diet. Discussion done with the patient and the patient's nurse. We will follow up. Nazia Guadarrama MD [facility]
[2018-09-09] MEDS ORDERED: FOLIC ACID PO SCH (10:00)
[2018-09-09] MEDS ORDERED: MULTIVITAMIN PO SCH (10:00)
[2018-09-09] MEDS ORDERED: [UNRECOGNIZED DRUG - OTHER] PO SCH (10:00)
[2018-09-09] MEDS ORDERED: Multivitamin With Minerals Tab PO SCH (10:00)
--- NOTE | 2018-09-09 12:24 | MRI ---
Date of service: 09/08/2018 PROCEDURE: Magnetic Resonance Cholangiopancreatography HISTORY: Rule out pancreatitis COMPARISON: None available. TECHNIQUE: Multiplanar, multisequence MR images of the abdomen were obtained, including heavily T2 weighted MRCP images of the biliary system. Rotating maximum intensity projection images of the biliary system were generated. FINDINGS: MRCP: The common bile duct is of a normal caliber status post cholecystectomy. No evidence of choledocholithiasis. No intrahepatic biliary ductal dilatation. LIVER: Unremarkable. GALLBLADDER: Removed SPLEEN: Unremarkable. PANCREAS: Unremarkable. ADRENALS: Unremarkable. KIDNEYS: Unremarkable. AORTA: No aneurysm. ASCITES: None. OTHER FINDINGS: The report concurs with the preliminary [facility] report IMPRESSION: Negative study
[2018-09-15] MEDS ORDERED: DULAGLUTIDE SC SCH ×2 (10:00)
== END 2018-09-08 22:46 | disposition short-term general hospital (02) ==
LOC: ED 22:55 → ERH 09-08 03:28 → 5RNO 09-08 05:28 → OBSVTOIN 09-08 14:30 → INTOOBSV 09-08 14:30
PROVIDERS: ADMIT Internal Medicine; ATTEND Internal Medicine
DX: R07.89 Other chest pain (principal); R10.13 Epigastric pain; K52.9 Noninfective gastroenteritis and colitis, unspecified; I11.0 Hypertensive heart disease with heart failure; I50.22 Chronic systolic (congestive) heart failure; Z94.1 Heart transplant status; E11.9 Type 2 diabetes mellitus without complications; I25.811 Atherosclerosis of native coronary artery of transplanted heart without angina pectoris; K31.7 Polyp of stomach and duodenum; G47.33 Obstructive sleep apnea (adult) (pediatric); I42.9 Cardiomyopathy, unspecified; J44.9 Chronic obstructive pulmonary disease, unspecified; K29.70 Gastritis, unspecified, without bleeding; K57.90 Diverticulosis of intestine, part unspecified, without perforation or abscess without bleeding; N39.0 Urinary tract infection, site not specified; K64.8 Other hemorrhoids; M06.9 Rheumatoid arthritis, unspecified; M19.90 Unspecified osteoarthritis, unspecified site; I25.2 Old myocardial infarction; Z87.11 Personal history of peptic ulcer disease; Z87.891 Personal history of nicotine dependence; Z86.74 Personal history of sudden cardiac arrest; Z79.82 Long term (current) use of aspirin; Z79.899 Other long term (current) drug therapy; Z96.641 Presence of right artificial hip joint; Z98.1 Arthrodesis status
CPT/HCPCS: 36415; 71045; 74176; 74181; 80053; 80061; 81001; 82150; 82607; 82746; 83036; 83540; 83550; 83690; 83735; 84484; 84703; 85025; 85610; 85730; 87040; 87086; 87497; 93005; 96374; 96375; 99285; G0378; J1200; J7030; J7507

== ENCOUNTER 2018-10-28 12:35 | Outpatient (CLI) | payer MEDICARE, OTHER | END 2018-10-28 12:36 | disposition home or self-care (01) | LOC: LAB 12:35 ==